=== PATIENT | male | born 1970 | race Caucasian/White ===

== ENCOUNTER 2020-03-29 09:17 | Outpatient (REF) | payer OTHER, SELFPAY ==
--- NOTE | 2020-03-29 09:24 | XR_ITS ---
EXAMINATION: XR CHEST CLINICAL INFORMATION: Chest pain COMPARISON: Chest 07/21/2018 TECHNIQUE: 2 views of the chest were obtained. FINDINGS: Hypoexpanded lungs with elevated right hemidiaphragm. The lungs are clear without acute process. Heart size and pulmonary vascularity is normal. No gross bony abnormality. XR/XR chest 2V IMPRESSION: No acute process seen. No change from 07/21/2018
== END 2020-03-29 09:18 | disposition home or self-care (01) ==
LOC: HO.HMGCX 09:17
PROVIDERS: PCP Internal Medicine; Visit Provider Nurse Practitioner Family
DX: R07.89 Other chest pain (principal)
CPT/HCPCS: 71046

== ENCOUNTER 2020-03-29 09:50 | Emergency (ER) | payer OTHER, SELFPAY ==
[2020-03-29 09:56] VITALS: PULSE 109; RESP 24; TEMP 37.6; O2SAT 97; BMI 29.1
--- NOTE | 2020-03-29 09:56 | ED_ITS ---
HPI - General Adult General Chief complaint: Chest Pain Stated complaint: chest and back pain Time Seen by Provider: 03/29/20 09:56 Source: patient Mode of arrival: ambulatory Limitations: no limitations History of Present Illness HPI narrative: chest pain right sided and thoracic worse with deep inspiration. Seen at the walk in and sent to the ED Onset (ago): hour(s) Location: chest and back Severity: moderate Quality: stabbing Pain Consistency: intermittent Exacerbating factors: other (deep inspiration) Related Data Previous Rx's Medication Instructions Recorded amlodipine 5 mg tablet 5 mg PO DAILY #90 tab 03/22/20 metoprolol succinate 25 mg 25 mg PO DAILY #90 tab 03/22/20 tablet,extended release 24 hr rosuvastatin 5 mg tablet 5 mg PO DAILY #90 tab 03/22/20 naproxen [Naprosyn] 500 mg PO BID #20 tab 03/29/20 Allergies Allergy/AdvReac Type Severity Reaction Status Date / Time Sulfa (Sulfonamide Allergy Unknown RASH Unverified 03/29/20 09:09 Antibiotics) [SULFA (SULFONAMIDE ANTIBIOTICS)] Review of Systems Constitutional: Constitutional: Reports no additional constitutional complaints Eyes: Eyes: Reports no additional eye complaints ENT: Denies dizziness Cardiovascular: Cardiovascular: Reports no additional cardiovascular complaints Respiratory: Respiratory: Reports as per HPI Gastrointestinal: Gastrointestinal: Reports no additional gastrointestinal complaints Musculoskeletal: Musculoskeletal: Reports no additional musculoskeletal complaints Integumentary/Breasts: Skin/Breast: Denies rash Neurologic: Reports system reviewed and no additional complaints, except as documented, Denies dizziness and Denies Sensory deficit (Neuro) Psychiatric: Psychiatric: Denies anxiety [facility] Past Medical History Medical History Hypercholesteremia Hypertension Social History Social History Alcohol intake: unknown Smoked in Last 30 Days: No Use of substances other than those prescribed or required for medical reasons: No Advance Directives: Yes Advance Directives Information Provided: No Advance Directives on File: No Physical Exam Vital Signs: Vital Signs: Last Vital Signs Temp 99.0 F 03/29/20 11:16 Pulse 82 03/29/20 12:13 Resp 20 03/29/20 12:13 BP 121/80 12/02/20 12:13 Pulse Ox 99 03/29/20 12:13 Body Mass Index 29.1 Const: General: healthy appearing Nutritional Appearance: average body habitus Orientation/consciousness: oriented to person and patient oriented x3 Limitations: no limitations HENMT: Head: Yes normal to inspection Ears: external ears normal General nose exam: Normal external nose present Mouth: Normal oral and palatal mucosa present and oropharynx normal Throat: Yes posterior oropharynx normal Eyes: General: appearance normal, both eyes and all related structures Neck: Other: supple Neck: Yes normal visual inspection Chest: Other: no reproducible chest pain Chest palpation & inspection: normal inspection of the chest Resp: Auscultation: clear to auscultation bilaterally Cardio: Jugular venous distension: no JVD Rate: regular rate Rhythm: regular rhythm Heart sounds: S1 normal heart sound present and S2 normal heart sound present GI: Inspection: Yes normal to inspection Palpation (GI): Soft to palpation, nontender and No hepatosplenomegaly present Auscultation: normal bowel sounds : General: Yes no CVA tenderness Back/Spine/Pelvis: Back: no CVA tenderness Skin: General skin exam: no rashes or lesions noted Neuro: General: oriented to person and patient oriented x3 Cranial nerves: Yes CN's II-XII intact bilaterally Motor exam (neuro): 5/5 motor strength present throughout Sensory Exam: No Sensory deficit (Neuro) Extrem: General: Yes normal to inspection Psych: Appearance: grossly normal Course Course Course Narrative: Ino Orlando in to see patient would like COVID test Medical Decision Making [facility] Narrative Medical decision making narrative: right pleuritic chest pain, troponin negati ve, ddimer negative, xray negative, will treat for pleuritic chest pain with NSAIDS Differential Diagnosis Differential Diagnosis: PE, pneumonia, RI, shingles, pleuritic chest pain, COVID Lab Data Result diagrams: 03/29/20 10:23 03/29/20 10:23 Labs: Lab Results 03/29/20 03/29/20 03/29/20 Range/Units 10:23 10:23 10:23 WBC 12.5 H (4.8-10.8) X10*3/uL RBC 4.66 (4.60-5.80) X10*6/uL Hgb 14.8 (14.0-18.0) g/dl Hct 42.4 (42-52) % MCV 91.0 (80-98) fL MCH 31.8 (27.0-33.0) pg MCHC 34.9 (31.0-36.0) g/dl RDW 12.8 (11.0-16.0) % Plt Count 268 (160-400) X10*3/uL MPV 9.7 (9.4-12.4) fL Immature Gran % (Auto) 0.3 (0.0-0.4) % Neut % (Auto) 80.8 H (45-73) % Lymph % (Auto) 10.8 L (20-40) % Fisher % (Auto) 7.9 (2-11) % Eos % (Auto) 0.0 (0-4) % Baso % (Auto) 0.2 (0-2) % Lymph # (Auto) 1.4 (1.2-4.9) X10*3/uL Fisher # (Auto) 1.0 (0.1-1.2) X10*3/uL Eos # (Auto) 0.0 (0.0-0.4) X10*3/uL Baso # (Auto) 0.0 (0.0-0.2) X10*3/uL Abs Immat Gran (auto) 0.04 H (0.00-0.03) X10*3/uL Absolute Neuts (auto) 10.1 H (2.0-8.3) X10*3/uL Absolute Nucleated RBC 0.000 (0.0-0.012) X10*3/uL Nucleated RBC % (auto) 0.0 (0.0-0.2) /100WBC D-Dimer NG/ML Sodium 140 (135-145) mmol/L Potassium 4.6 (3.3-5.1) mmol/l Chloride 104 (96-108) mmol/L Carbon Dioxide 27 (22-29) mmol/L Anion Gap 14 (12-20) BUN 14 (9-16) mg/dL Creatinine 1.02 (0.5-1.4) mg/dL Estim Creat Clear Calc 87.0 Estimated GFR > 60 Random Glucose 128 H (60-115) mg/dL Calcium 8.6 (8.4-10.2) mg/dL Troponin I High Sens < 3.5 (<3.5-35.0) ng/L COVID-19 ([facility]) (Negative) COVID-19 Clin Com 03/29/20 03/29/20 Range/Units 10:23 13:12 WBC (4.8-10.8) X10*3/uL RBC (4.60-5.80) X10*6/uL Hgb (14.0-18.0) g/dl Hct (42-52) % MCV (80-98) fL MCH (27.0-33.0) pg MCHC (31.0-36.0) g/dl RDW (11.0-16.0) % Plt Count (160-400) X10*3/uL MPV (9.4-12.4) fL Immature Gran % (Auto) (0.0-0.4) % Neut % (Auto) (45-73) % Lymph % (Auto) (20-40) % Fisher % (Auto) (2-11) % Eos % (Auto) (0-4) % Baso % (Auto) (0-2) % Lymph # (Auto) (1.2-4.9) X10*3/uL Fisher # (Auto) (0.1-1.2) X10*3/uL Eos # (Auto) (0.0-0.4) X10*3/uL Baso # (Auto) (0.0-0.2) X10*3/uL Abs Immat Gran (auto) (0.00-0.03) X10*3/uL Absolute Neuts (auto) (2.0-8.3) X10*3/uL Absolute Nucleated RBC (0.0-0.012) X10*3/uL Nucleated RBC % (auto) (0.0-0.2) /100WBC D-Dimer < 200 NG/ML Sodium (135-145) mmol/L Potassium (3.3-5.1) mmol/l Chloride (96-108) mmol/L Carbon Dioxide (22-29) mmol/L Anion Gap (12-20) BUN (9-16) mg/dL Creatinine (0.5-1.4) mg/dL Estim Creat Clear Calc Estimated GFR Random Glucose (60-115) mg/dL Calcium (8.4-10.2) mg/dL Troponin I High Sens (<3.5-35.0) ng/L COVID-19 ([facility]SEL) Negative (Negative) COVID-19 Clin Com See Note ECG Data Attestation: I personally reviewed and interpreted this ECG as follows: Interpretation: sinus tachycardia rate of 110, old inferior Q, no st or twave changes Discharge Plan Discharge Clinical Impression: Chest wall pain Patient Disposition: Home, Self-Care Instructions: Chest Pain (ED), Chest Wall Pain (ED) Prescriptions: New naproxen [Naprosyn] 500 mg tablet 500 mg PO BID Qty: 20 RF: 0 No Action rosuvastatin [Crestor] 5 mg tablet 5 mg PO DAILY Qty: 90 RF: 1 amlodipine 5 mg tablet 5 mg PO DAILY Qty: 90 RF: 1 metoprolol succinate [Toprol XL] 25 mg tablet extended release 24 hr 25 mg PO DAILY Qty: 90 RF: 1 Referrals: Ino Orlando MD [Primary Care Provider] - 2 days
--- NOTE | 2020-03-29 10:09 | ECG_ITS ---
Test Reason : CHEST PAIN Blood Pressure : / mmHG Vent. Rate : 110 BPM Atrial Rate : 110 BPM P-R Int : 146 ms QRS Dur : 090 ms QT Int : 312 ms P-R-T Axes : 040 000 025 degrees QTc Int : 422 ms Sinus tachycardia Possible Inferior infarct , age undetermined Abnormal ECG When compared with ECG of 07-JUN-2006 19:29, Possible Inferior infarct is now Present Referred By: Biju Cote Electronically Signed By:EVELYN SHERWOOD MD
[2020-03-29] MEDS: Ketorolac Tromethamine 30 MG/ML VIAL IVPUSH (10:24)
[2020-03-29 10:29] LABS: MANUAL DIFF FLAG NO
[2020-03-29 10:32] LABS: Basophils Percent Auto 0.2 % (0-2); Hematocrit 42.4 % (42-52); Hemoglobin 14.8 g/dl (14.0-18.0); Imm Gran Abs Auto 0.04 X10*3/uL (0.00-0.03); Imm Gran Pct Auto 0.3 % (0.0-0.4); Lymphocytes Absolute Auto 1.4 X10*3/uL (1.2-4.9); Lymphocytes Percent Auto 10.8 % (20-40); Mean Corpuscular HGB Conc 34.9 g/dl (31.0-36.0); Mean Corpuscular Hemoglobin 31.8 pg (27.0-33.0); Mean Platelet Volume 9.7 fL (9.4-12.4); Monocytes Percent Auto 7.9 % (2-11); Neutrophils Absolute Auto 10.1 X10*3/uL (2.0-8.3); Neutrophils Percent Auto 80.8 % (45-73); Platelet Count 268 X10*3/uL (160-400); Red Blood Count 4.66 X10*6/uL (4.60-5.80); Red Cell Distribution Width 12.8 % (11.0-16.0); White Blood Count 12.5 X10*3/uL (4.8-10.8)
[2020-03-29 10:40] LABS: D Dimer < 200 NG/ML
[2020-03-29 10:51] LABS: Anion Gap 14 (12-20); Blood Urea Nitrogen 14 mg/dL (9-16); Calcium 8.6 mg/dL (8.4-10.2); Carbon Dioxide 27 mmol/L (22-29); Chloride 104 mmol/L (96-108); Estimated Glomerular Filt Rate > 60; Glucose Random 128 mg/dL (60-115); Potassium 4.6 mmol/l (3.3-5.1); Sodium 140 mmol/L (135-145)
[2020-03-29 10:58] LABS: Troponin-I High Sensitivity < 3.5 ng/L (<3.5-35.0)
[2020-03-29 11:16] VITALS: BP 125/85; PULSE 86; RESP 16; TEMP 37.2; O2SAT 94
--- NOTE | 2020-03-29 11:32 | XR_ITS ---
EXAMINATION: XR CHEST CLINICAL INFORMATION: Right-sided pleuritic chest pain. COMPARISON: Chest radiographs 03/29/2020 at 0926 hours, 07/21/2018, 05/03/2017 TECHNIQUE: 2 views of the chest were obtained. FINDINGS: There is no pneumothorax, subcutaneous emphysema, or focal pleural reaction. Again, there are low lung volumes with hypoventilatory changes adjacent to the diaphragms. There is likely trace disc atelectasis at both bases. There is no lobar or segmental airspace consolidation or definite groundglass opacity. No definite effusion. The heart is normal in size. The hilar and mediastinal contours and bony structures are unremarkable. XR/XR chest 2V IMPRESSION: 1. Low lung volumes with bibasilar hypoventilatory changes, likely trace bibasilar disc atelectasis. 2. No pneumothorax or pleural reaction.
--- NOTE | 2020-03-29 11:35 | PC.NURSE ---
Pt reports paim has subsided. He states he is able to take a deep breath much more comfortably now. Plan is to repeat a CXR.
[2020-03-29 12:13] VITALS: BP 121/80; PULSE 82; RESP 20; O2SAT 99
[2020-03-29 13:36] LABS: COVID-19 Test Negative (Negative); IDNOW Serial# 9DD0AD1C
== END 2020-03-29 14:13 | disposition home or self-care (01) ==
PROVIDERS: Emergency Provider Emergency Medicine; PCP Internal Medicine
DX: R07.9 Chest pain, unspecified (principal); Z79.899 Other long term (current) drug therapy
CPT/HCPCS: 36415; 71046; 80048; 84484; 85025; 85379; 87635; 93005; 96374; 99284; J1885

== ENCOUNTER 2020-03-30 15:50 | Outpatient (REF) | payer OTHER, SELFPAY ==
--- NOTE | 2020-03-30 16:00 | CT_ITS ---
EXAMINATION: CT CHEST WITHOUT CONTRAST CLINICAL INFORMATION: Right sided pleuritic chest pain. COMPARISON: None TECHNIQUE: Multidetector volumetric CT imaging of the chest was done. Axial MIP volume rendering provided. Sagittal and coronal reformatted images were obtained. This CT examination was performed using dose optimization techniques as appropriate, variously including the following: *Automated exposure control *Adjustment of mA and/or kV according to patient size (this includes techniques or standardized protocols for targeted exams where dose is matched to indication/reason for exam; i.e. 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 LUNGS: The lungs are hypoexpanded. However there is a right lower lobe airspace consolidation and posterior basal segment, CP angle. Also visualized is minimal airspace disease in the left CP angle posterior basal segment on sagittal view 40/7. In addition there is bilateral lower lobe stranding likely chronic atelectasis. Minimal atelectatic changes also seen in the right middle lobe medially. MEDIASTINUM: The thyroid lobes are symmetrical and normal. The central trachea and the bronchi widely patent. Heart size and the great vessels are normal caliber. No abnormal size mediastinal lymph nodes or mass seen. There is no pericardial effusion. PLEURA: There is small reactive right pleural effusion. AXILLA: No abnormal sized axillary lymph nodes seen. The chest wall appears unremarkable. UPPER ABDOMEN: Visualized liver, gallbladder, spleen, pancreas and bilateral adrenal glands are unremarkable. OSSEOUS STRUCTURES: No lytic or sclerotic process seen. There is minimal spondylosis T8-T9 disc level. CT/CT chest wo con IMPRESSION: Bilateral posterior basal segment infiltrates slightly more prominent on the right than left. There is bibasilar platelike atelectasis as well. Minimal small right pleural effusion. Results were discussed with Dr. Tulio Sibley by phone at 4:05 PM.
== END 2020-03-30 15:51 | disposition home or self-care (01) ==
LOC: HO.CT 15:50
PROVIDERS: PCP Internal Medicine; Visit Provider Hospitalist
DX: R06.02 Shortness of breath (principal)
CPT/HCPCS: 71250

== ENCOUNTER → 2020-03-31 | Outpatient (REF) | payer OTHER, SELFPAY ==
--- NOTE | 2020-03-31 09:59 | CA_ITS ---
Transthoracic Echocardiogram Amended Patient (Last, First, Middle): Rivera Reid R Gender: Male Date of : 1970 Age: 49 Procedure Date: 03/31/2020 Procedure Type: Transthoracic Echocardiogram Location: OP Height: 167.64 cm Weight: 81.65 kg BSA: 1.91 m2 Heart Rate: bpm Ict Sales Representative: LESTER Referring MD: Tulio Sibley DO Telecom Manager: Gurwinder Bond MD Symptoms: R94.31 - Abnormal electrocardiogram [ECG] [EKG] Study Quality: Good ECG Rhythm: Sinus Conclusions: - 1. Normal LV systolic function with grade 1 diastolic dysfunction 2. Normal cardiac valvular Doppler 3. Normal RV systolic pressure 4. No pericardial effusion Findings Left Ventricle Normal left ventricular size, thickness, and systolic function. The visually estimated ejection fraction is between 60-65%. Spectral Doppler is indicative of an impaired relaxation filling pattern. E/E prime ratio is <8, consistent with normal filling pressures. Evidence suggests grade I (mild) diastolic dysfunction. Right Ventricle Normal right ventricular cavity size and systolic function. Atria Both atria are normal in size. There is a mobile atrial septum noted. Interatrial shunt cannot be excluded. Aortic Valve Normal aortic valve structure and function. There is no aortic valve stenosis. There is no aortic valve regurgitation. Mitral Valve Normal mitral valve structure and function. There is trace mitral valve regurgitation. There is no mitral valve stenosis. Pulmonic Valve The pulmonic valve is likely normal. Tricuspid Valve Normal tricuspid valve structure. There is trace tricuspid valve regurgitation. The right ventricular systolic pressure is normal. The right ventricular systolic pressure is 23 mmHg. Normal right atrial pressure. There is no evidence of pulmonary hypertension. Great Vessels All visible segments of the aorta are normal in size. The pulmonary artery was not well visualized. Venous The inferior vena cava is normal in size and collapses greater than 50% with inspiration. Pericardium/Pleural There is no evidence of pericardial effusion. Prior Study Comparison no previous study in the last 5 years for comparison Recommendations, Care & Conclusions Recommend contrast study to evaluate intracardiac shunting. Measurements 2D Linear Measurements IVSd: 1.13 0.6-0.9/0.6-1.0 cm LVIDd: 4.23 3.9-5.3/4.2-5.9 cm LVIDd Index: 2.21 2.4-3.2/2.2-3.1 cm/m2 LVIDs: 2.35 2.0-3.6 cm LVPWd: 1.09 0.7-1.1 cm Ao Root: 3.20 2.1-3.5 cm LA Diam: 3.80 2.7-3.8/3.0-4.0 cm LAIDs Index: 1.99 1.5-2.3 cm/m2 LV Mass: 200.36 67-162/88-224 g LV Mass Index: 104.90 43-95/49-115 g/m2 LVOT Diam: 2.20 3.0+(-)1.3 cm 2D Volumes LA Vol: 24.60 Mitral Valve MV Pk E: 0.75 MV PK A: 1.01 MV Decel Time: 150.00 E/A: 0.70 E'Lateral: 10.70 E'Medial: 10.10 E/E' Med: 7.50 E/E' Lat: 7.00 PHT: 44.00 MVA PHT: 5.00 Decel Dolores: 5.04 Aortic Valve AoV Pk Frantz: 1.41 AoV Mn Frantz: 0.97 AoV VTI: 0.25 AoV Pk Grad: 8.00 Aov Mn Grad: 4.00 NICOLA Cont.VTI: 3.66 LVOT LVOT Pk Frantz: 0.93 LVOT Mn Frantz: 0.54 LVOT VTI: 0.24 LVOT Pk Grad: 3.00 LVOT Mn Grad: 1.00 LVOT Diam: 2.20 LVOT Area: 3.80 Diastolic Function MV Pk E: 0.75 MV Pk A: 1.01 E/A: 0.70 E'Medial: 10.10 E/E' Med: 7.50 E' Laterial: 10.70 E/E' Lat: 7.00 Tricuspid Valve TR Pk Frantz: 2.23 TR Pk Grad: 20.00 RA Press: 3.00 RVSP: 23.00 Great Vessels Aorta Ao Root-2D: 3.20 2.0-3.7 cm Ao Asc: 3.00 2.1-3.4 cm Pulmonary Valve PV Pk Frantz: 1.76 Peak PV Grad: 12.00 Updated in Other Vendor System with Status of Final Gurwinder Bond MD electronically signed on 03/31/2020 2:47:57 PM with status of Final
== END ==
LOC: HO.CARD
PROVIDERS: PCP Internal Medicine; Visit Provider Hospitalist
DX: R94.31 Abnormal electrocardiogram [ECG] [EKG] (principal)
CPT/HCPCS: 93306

== ENCOUNTER 2020-04-04 07:20 | Outpatient (REF) | payer OTHER, SELFPAY ==
[2020-04-04 07:43] LABS: COVID-19 Test Negative (Negative); IDNOW Serial# 55D5AD1C
== END 2020-04-04 07:21 | disposition home or self-care (01) ==
LOC: HO.LAB 07:20
PROVIDERS: Visit Provider Internal Medicine
DX: Z20.828 Contact with and (suspected) exposure to other viral communicable diseases (principal)
CPT/HCPCS: 87635; C9803

== ENCOUNTER 2020-04-24 08:12 | Outpatient (REF) | payer OTHER, SELFPAY ==
[2020-04-24 08:25] LABS: COVID-19 Test Positive (Negative); IDNOW Serial# 55D5AD1C
== END 2020-04-24 08:13 | disposition home or self-care (01) ==
LOC: HO.EMPCOV 08:12
PROVIDERS: PCP Internal Medicine; Visit Provider Internal Medicine
DX: Z20.828 Contact with and (suspected) exposure to other viral communicable diseases (principal)
CPT/HCPCS: 87635; C9803

== ENCOUNTER 2020-04-25 09:29 | Inpatient (IN) | payer OTHER, SELFPAY ==
--- NOTE | 2020-04-25 | CT_ITS ---
EXAMINATION: CT ANGIOGRAM OF THE CHEST WITH AND WITHOUT CONTRAST (CT PULMONARY ANGIOGRAM FOR PE) CLINICAL INFORMATION: Reason for Exam chest pain COMPARISON: CT chest 03/30/2020. Chest x-ray 04/25/2020 TECHNIQUE: Prior to contrast administration, noncontrast localization images were obtained. Subsequently, multidetector volumetric imaging was performed from the thoracic inlet to below the diaphragms following the administration of 80 mL Omnipaque 350 intravenous contrast. No contrast reaction reported Sagittal, coronal, and MIP oblique sagittal reformatted images were obtained on the CT workstation, uploaded to PACS, and reviewed. This CT examination was performed using dose optimization techniques as appropriate, variously including the following: *Automated exposure control *Adjustment of mA and/or kV according to patient size (this includes techniques or standardized protocols for targeted exams where dose is matched to indication/reason for exam; i.e. extremities or head) *Use of iterative reconstruction technique Total exam dose-length product 416 mGy-cm FINDINGS: QUALITY OF STUDY/CONTRAST BOLUS: Satisfactory. PULMONARY ARTERIES: No central or segmental pulmonary emboli. THORACIC AORTA: No aneurysm or dissection. LUNG: No focal consolidation, nodules or masses. PLEURA: No pleural effusion or pneumothorax. MEDIASTINUM: Normal heart size. No pericardial effusion. No hilar or mediastinal lymphadenopathy. No evidence of septal bowing or right heart strain. CHEST WALL/AXILLA: No axillary or internal mammary lymphadenopathy. OSSEOUS STRUCTURES: No acute or suspicious osseous abnormality. UPPER ABDOMEN: Unremarkable. No reflux of contrast into the hepatic veins to suggest elevated right heart pressures. CT/CT angio chest PE protocol IMPRESSION: No acute abnormality of chest. No evidence of pulmonary embolism. VTE: negative
--- NOTE | 2020-04-25 09:17 | XR_ITS ---
EXAMINATION: XR CHEST CLINICAL INFORMATION: Covid 19 COMPARISON: Previous chest x-ray most recent 03/29/2020 TECHNIQUE: Frontal view of the chest was obtained. FINDINGS: The cardiac and mediastinal contours are normal. The lung volumes are low. The lungs are clear. There is no pleural effusion or pneumothorax. Bony structures are unremarkable. XR/XR chest 1V IMPRESSION: Low lung volumes. No evidence of pneumonia.
[2020-04-25 10:00] VITALS: BP 127/85; PULSE 111; RESP 18; TEMP 36.7; O2SAT 98
[2020-04-25 10:09] VITALS: BMI 29.0
--- NOTE | 2020-04-25 10:10 | ECG_ITS ---
Test Reason : TACHICARDIA Blood Pressure : / mmHG Vent. Rate : 085 BPM Atrial Rate : 085 BPM P-R Int : 154 ms QRS Dur : 096 ms QT Int : 374 ms P-R-T Axes : 024 -06 -04 degrees QTc Int : 445 ms Poor data quality, interpretation may be adversely affected Normal sinus rhythm Cannot exclude old Inferior infarct (cited on or before 29-MAR-2020) Abnormal ECG When compared with ECG of 29-MAR-2020 09:57, No significant change was found Referred By: Sher Parada Electronically Signed By:GINNY CORCORAN
[2020-04-25 10:13] LABS: Hematocrit 44.2 % (42-52); Mean Corpuscular HGB Conc 33.9 g/dl (31.0-36.0); Mean Corpuscular Hemoglobin 30.8 pg (27.0-33.0); Mean Corpuscular Volume 90.8 fL (80-98); Mean Platelet Volume 9.6 fL (9.4-12.4); Platelet Count 256 X10*3/uL (160-400); Red Blood Count 4.87 X10*6/uL (4.60-5.80); White Blood Count 5.9 X10*3/uL (4.8-10.8)
[2020-04-25] MEDS: Enoxaparin Sodium 40 MG/0.4 ML SYRINGE SUBCUT (10:19)
[2020-04-25 10:35] LABS: Anion Gap 16 (12-20); Blood Urea Nitrogen 13 mg/dL (9-16); Calcium 8.8 mg/dL (8.4-10.2); Carbon Dioxide 22 mmol/L (22-29); Chloride 106 mmol/L (96-108); Creatinine Clr Calc Pharmacy 73.2; Estimated Glomerular Filt Rate > 60; Glucose Random 147 mg/dL (60-115); Sodium 140 mmol/L (135-145)
[2020-04-25 10:38] LABS: C Reactive Protein 0.78 mg/dL (< or = 0.50); Lactate Dehydrogenase 202 U/L (118-273)
[2020-04-25 10:40] LABS: D Dimer < 200 NG/ML
[2020-04-25] MEDS: dexAMETHasone sod phosphate 4 MG/ML VIAL 6 MG IVPUSH (11:08)
[2020-04-25 11:26] LABS: Alanine Aminotransferase 36 U/L (0-40); Albumin Level 4.4 g/dL (3.5-5.0); Alkaline Phosphatase 91 U/L (39-117); Aspartate Amino Transferase 28 U/L (5-37); Bilirubin Direct < 0.2 mg/dL (0.0-0.5); Bilirubin Total 0.4 mg/dL (0.0-1.0); Total Protein 7.2 g/dL (6.5-8.0)
--- NOTE | 2020-04-25 12:25 | PM.IMHP ---
History of Present Illness Date of Service: 04/25/20 Chief Complaint: Covid with respiratory difficulty 49 year male with HTN, HLD who was treated with CAP at the begining of the moth and had full recovery and presented after tested positive for covid on 04/24/20. He developed cough the day prior, and has been experiencing heavy in the chest with breathing, cough is mostly non-productive, he has had fever of up to 101. He is admitted to the hospital in recent with pneumonia that may have compromise lungs and now with covid and some difficulty breathing despite oxygen saturation being ok for the time being. Review of Systems Review of Systems: Gen: + fever Resp: n+ sob, + cough CV: some heavyness in the chest GI: No n/v, no abd pain Neuro: No confusion Yes all other systems are reviewed and are negative [facility] Medical History HLD (hyperlipidemia) Hypercholesteremia Hypertension Cognitive capacity: Intact Functional capacity: independent ambulation Family History Other Coronary artery disease (CAD) excluded HLD (hyperlipidemia) HTN (hypertension) Pertinent family history: CAD, HLD, HTN--Father Social History Household Members: Spouse and Children Housing: House Do you presently have visiting nurse or other home services: No Alcohol intake: unknown Smoking Status: Never smoker Second Hand Smoke Exposure: No Use of substances other than those prescribed or required for medical reasons: No Currently Displaying Signs/Symptoms of Drug Intoxication Withdrawal: No Any prior treatment program specific to substance use: No Have you been hit, kicked, punched, or otherwise hurt by someone within the past year? If so, by whom?: No Do you feel safe in your current relationship?: No Is there a partner from a previous relationship who is making you feel unsafe now?: No Are you made to feel afraid or neglected: No Advance Directives: No Advance Directives Information Provided: Yes Do you have thoughts of harming others: None Do you have a plan to hurt others: No Plan Recently lost weight without trying: No Meds Allergies Allergy/AdvReac Type Severity Reaction Status Date / Time fish derived [fish] Allergy Hives Verified 04/25/20 17:24 Physical Exam Vital Signs and Narrative: Vital Signs: Last Vital Signs Temp 98.1 F 04/25/20 10:00 Pulse 111 H 04/25/20 10:00 Resp 18 04/25/20 10:00 BP 127/85 04/25/20 10:00 Pulse Ox 98 04/25/20 10:00 Body Mass Index 29.0 General: AO X 3, no acute distress Resp: CTA bilatera. except dec breath sound at bases CVS: S1,S2,RRR on monitor GI: no complaint Skin: No rash Neuro: motor grossly intact Psych: appropriate affect Results Labs CBC and Chem 7: 04/25/20 09:48 04/25/20 09:48 Imaging Radiologist's Impressions: Impressions Chest X-Ray 04/25/20 09:17 IMPRESSION: Low lung volumes. No evidence of pneumonia. Assessment and Plan (1) COVID-19: Problem details: Symptomatic moderate COVID with symptoms of chest pain and tachypnea and fever. Positive PCR with a recent exposure. Right now he is on room air hemodynamically stable. He was vaccinated 7 days ago. Most likely he was incubating COVID when received vaccine Also vaccine is only 52 % effective after first dose and received only a week ago and had exposure He has had pneumonia in past he mentions as well 3 weeks ago and concern over any asthma or predisposing factors to pneumonia Status: Acute (2) HTN (hypertension): Status: Acute (3) HLD (hyperlipidemia): Status: Acute (4) Shortness of breath: Status: Acute 49 year male wth HTN, HLD, recent treatment for PNA and now with covid-19 with some respiratory difficulty, fever. 1. Covid-19, respirtaoty difficulty -Corticosteroid -Pulmonary/ID consult -May benefit from Remdesevir -CXR -Routine labs -Cough medication as needed 2. HTN--controlled. Continue Home meds (Metoprolol and Norvasc)--already taken today 3. HLD--continue Crestor 4. Lovenox for DVT prophylaxis
[2020-04-25] MEDS: Remdesivir 200 MG in 0.9 % Sodium Chloride 210 ML 105 MG IV (12:29)
[2020-04-25 12:53] VITALS: BP 146/80; PULSE 89; RESP 18; TEMP 37.2; O2SAT 96
--- NOTE | 2020-04-25 13:04 | P.CONPL_ITS ---
History of Present Illness History of Present Illness Consult date: 04/25/20 Chief complaint: covid respiratory issues Narrative: The patient is a 49-year-old gentleman with a recent history of pneumonia several weeks ago now presenting with worsening shortness of breath and chest pressure. Apparently the patient was in his usual state health until the beginning of March when he started developing pleuritic right-sided chest pain. He was evaluated and had a CT scan of the chest demonstrating bibasilar consolidations. He was placed on antibiotics and he recovered completely. Now more recently over the weekend he was exposed to COVID-19 infection. He started developing fevers and shortness of breath in addition to chest pains. Therefore last night he was concerned with the symptoms and was brought into the hospital. He could use found to be abnormal and a chest x-ray demonstrating significant limitations in his respiratory capacity. No significant opacities appreciated. Review of Systems Constitutional: Constitutional: Reports body ache(s), Reports chills and Reports fever(s) ENT: Denies change in voice, Denies lip swelling, Denies mouth pain, Reports nasal congestion, Reports nasal discharge and Denies tongue swelling Cardiovascular: Cardiovascular: Reports chest pain and Reports dyspnea Respiratory: Respiratory: Reports chest congestion, Reports cough and Reports dyspnea Gastrointestinal: Gastrointestinal: Denies abdominal pain Musculoskeletal: Musculoskeletal: Denies no additional musculoskeletal complaints Neurologic: Denies Neuro-related abnormal movements Psychiatric: Psychiatric: Denies no additional psychiatric complaints Hematologic/Lymphatic: Hematologic/Lymphatic: Denies easy bleeding and Denies lymphadenopathy Allergic/Immunologic: Allergic/Immunologic: Denies lip swelling and Denies tongue swelling [facility] Past Medical History Medical History (Updated 04/25/20 @ 13:08 by Galo Dickerson MD) HLD (hyperlipidemia) Hypercholesteremia Hypertension Functional capacity: independent ambulation Family History Family History Other Coronary artery disease (CAD) excluded HLD (hyperlipidemia) HTN (hypertension) Social History Social History Household Members: Spouse and Children Housing: House Do you presently have visiting nurse or other home services: No Alcohol intake: unknown Smoking Status: Never smoker Second Hand Smoke Exposure: No Use of substances other than those prescribed or required for medical reasons: No Currently Displaying Signs/Symptoms of Drug Intoxication Withdrawal: No Any prior treatment program specific to substance use: No Have you been hit, kicked, punched, or otherwise hurt by someone within the past year? If so, by whom?: No Do you feel safe in your current relationship?: No Is there a partner from a previous relationship who is making you feel unsafe now?: No Are you made to feel afraid or neglected: No Advance Directives: No Advance Directives Information Provided: Yes Do you have thoughts of harming others: None Do you have a plan to hurt others: No Plan Recently lost weight without trying: No Meds Allergies Allergy/AdvReac Type Severity Reaction Status Date / Time Sulfa (Sulfonamide Allergy Unknown RASH Unverified 03/29/20 09:09 Antibiotics) [SULFA (SULFONAMIDE ANTIBIOTICS)] Physical Exam Vital Signs: Vital Signs: Last Vital Signs Temp 98.9 F 04/25/20 12:53 Pulse 89 04/25/20 12:53 Resp 18 04/25/20 12:53 BP 146/80 H 04/25/20 12:53 Pulse Ox 96 04/25/20 12:53 Body Mass Index 29.0 Const: General: alert HENMT: General nose exam: Abnormal external nose present and Nasal discharge present Eyes: Pupils: Equal, round and reactive pupils present Neck: Neck: Yes normal visual inspection, Yes full ROM and Yes no lymphadenopathy Chest: Chest palpation & inspection: normal inspection of the chest Resp: Auscultation: diminished lung sounds Cardio: Rate: regular rate Rhythm: regular rhythm Heart sounds: S1 normal heart sound present and S2 normal heart sound present GI: Palpation (GI): Soft to palpation and nontender Auscultation: normal bowel sounds : General: Yes no CVA tenderness Back/Spine/Pelvis: Back: no CVA tenderness Skin: General skin exam: rashes and/or lesions noted Neuro: Cranial nerves: Yes Equal, round and reactive pupils present Results Laboratory Findings CBC and BMP: 04/25/20 09:48 04/25/20 09:48 ABG, PT/INR, D-dimer: PT/INR, D-dimer D-Dimer < 200 NG/ML 04/25/20 09:48 Abnormal lab findings: Abnormal Labs 04/25/20 04/25/20 09:48 09:48 Random Glucose 147 H C-Reactive Protein 0.78 H Assessment and Plan (1) COVID-19: Problem details: Positive PCR with a recent exposure. Right now he is on room air hemodynamically stable. He was vaccinated 7 days ago. Status: Acute Check for SARs Cov2 antibodies (2) Shortness of breath: Status: Acute (3) Chest wall pain: Problem details: High risk for thrombo-embolic disease with +covid Status: Acute CTA which will further assess for airspace disease and
[2020-04-25 14:11] LABS: SARS COV2 IgG Negative (Negative)
--- NOTE | 2020-04-25 15:38 | P.CNID_ITS ---
History of Present Illness Data of Consult Service Date: 04/25/20 Requesting physician: Sher Parada Primary Care Provider: Ino Orlando MD HPI Reason for consult: shortness of breath,COVID He presents to hospital ER after one day cough and fever to 101 as well as right sided chest pain 6/10 radiating to back He has no nausea,vomiting,diarrhea or rash mentioned His daughter who is shadowing a physician practice has COVID and is symptomatic. Review of Systems Cardiovascular: Cardiovascular: Reports as per HPI and Reports chest pain at rest Respiratory: Respiratory: Reports cough Neurologic: Denies Neuro-related abnormal movements [facility] Past Medical History Medical History HLD (hyperlipidemia) Hypercholesteremia Hypertension Functional capacity: independent ambulation Family History Family History Other Coronary artery disease (CAD) excluded HLD (hyperlipidemia) HTN (hypertension) Social History Social History Household Members: Spouse and Children Housing: House Do you presently have visiting nurse or other home services: No Alcohol intake: unknown Smoking Status: Never smoker Second Hand Smoke Exposure: No Use of substances other than those prescribed or required for medical reasons: No Currently Displaying Signs/Symptoms of Drug Intoxication Withdrawal: No Any prior treatment program specific to substance use: No Have you been hit, kicked, punched, or otherwise hurt by someone within the past year? If so, by whom?: No Do you feel safe in your current relationship?: No Is there a partner from a previous relationship who is making you feel unsafe now?: No Are you made to feel afraid or neglected: No Advance Directives: No Advance Directives Information Provided: Yes Do you have thoughts of harming others: None Do you have a plan to hurt others: No Plan Recently lost weight without trying: No Meds Allergies Allergy/AdvReac Type Severity Reaction Status Date / Time Sulfa (Sulfonamide Allergy Unknown RASH Unverified 03/29/20 09:09 Antibiotics) [SULFA (SULFONAMIDE ANTIBIOTICS)] Physical Exam Vital Signs: Vital Signs: Last Vital Signs Temp 98.9 F 04/25/20 12:53 Pulse 89 04/25/20 12:53 Resp 18 04/25/20 12:53 BP 146/80 H 04/25/20 12:53 Pulse Ox 96 04/25/20 12:53 Body Mass Index 29.0 Const: General: comfortable HENMT: Head: Yes normocephalic and Yes atraumatic Resp: Effort & Inspection: normal respiratory effort Cardio: Rate: regular rate Rhythm: regular rhythm Extrem: General: Yes no clubbing, cyanosis or edema Assessment and Plan (1) COVID-19: Problem details: Symptomatic moderate COVID with symptoms of chest pain and tachypnea and fever. Positive PCR with a recent exposure. Right now he is on room air hemodynamically stable. He was vaccinated 7 days ago. Most likely he was incubating COVID when received vaccine Also vaccine is only 52 % effective after first dose and received only a week ago and had exposure He has had pneumonia in past he mentions as well 3 weeks ago and concern over any asthma or predisposing factors to pneumonia Status: Acute Due to tachypnea and fever and possibility for clinical deterioration in setting of recent infection would give 1)Remdesivir 200 mg IV today and then 100 mg IV daily for 4 days,can stop if remains off oxygen 2)Dexamethasone 6 mg IV or po daily,can also stop if remains off oxygen 3)Would not recommend monoclonal antibody or convalescent plasma as not likely to be helpful and may be harmful with possible allergic reactions 4)Would give second dose of COVID vaccine in 3 months,would wait to achieve optimal antibody effect Results Labs CBC & Chem 7: 04/25/20 09:48 04/25/20 09:48 Labs: Short CBC 04/25/20 Range/Units 09:48 WBC 5.9 (4.8-10.8) X10*3/uL Hgb 15.0 (14.0-18.0) g/dl Hct 44.2 (42-52) % Plt Count 256 (160-400) X10*3/uL BMP 04/25/20 09:48 Sodium 140 Potassium 4.0 Chloride 106 Carbon Dioxide 22 BUN 13 Creatinine 1.21 Calcium 8.8 Liver Function 04/25/20 Range/Units 10:35 Total Bilirubin 0.4 (0.0-1.0) mg/dL Direct Bilirubin < 0.2 (0.0-0.5) mg/dL AST 28 (5-37) U/L ALT 36 (0-40) U/L Alkaline Phosphatase 91 (39-117) U/L Albumin 4.4 (3.5-5.0) g/dL
[2020-04-25] MEDS: 0.9 % Sodium Chloride Flush 3 ML SYRINGE IVFLUSH ×2 (16:53→21:03)
[2020-04-25] MEDS: iohexoL 350 MG/ML 100 ML INFUS..BTL IV (17:43)
[2020-04-25 19:50] VITALS: BP 120/72; PULSE 94; RESP 18; TEMP 37.7; O2SAT 96
[2020-04-25] MEDS: Zolpidem Tartrate 5 MG TABLET PO (21:13)
[2020-04-26] VITALS (9 sets, daily range): BP systolic 108–135; BP diastolic 65–89; PULSE 79–116; RESP 16–18; TEMP 36.5–37.1; O2SAT 93–96
[2020-04-26] MEDS: Enoxaparin Sodium 40 MG/0.4 ML SYRINGE SUBCUT (09:31)
[2020-04-26] MEDS: dexAMETHasone sod phosphate 4 MG/ML VIAL 6 MG IVPUSH (09:33)
[2020-04-26] MEDS: 0.9 % Sodium Chloride Flush 3 ML SYRINGE IVFLUSH ×3 (09:33→21:18)
[2020-04-26 10:19] LABS: Troponin-I High Sensitivity < 3.5 ng/L (<3.5-35.0)
--- NOTE | 2020-04-26 11:30 | PM.CNCAR ---
History of Present Illness History of Present Illness Date of Service: 04/26/20 Chief complaint: covid respiratory issues Narrative: This is a cardiology consultation regarding chest discomfort. Patient does not have any known cardiovascular issues including coronary disease or myocardial infarction or cardiomyopathy or in fact any other cardiac concerns whatsoever. At baseline, he does not have any anginal-type symptoms or shortness of breath or in fact any concerning symptoms at all. Current admission is for COVID infection and in this setting, he is having chest discomfort. This is very positional and can happen in certain positions but at other times he is feeling more comfortable. No exertional components whatsoever. No shortness of breath or other cardiac complaints like palpitations or dizzy spells or syncopal episodes. He does have hypertension, dyslipidemia at baseline. Review of Systems Review of Systems: Yes all other systems are reviewed and are negative Cardiovascular: Cardiovascular: Reports as per HPI, Reports no additional cardiovascular complaints, Reports chest pain, Reports chest pain at rest, Denies chest pain with activity, Denies rapid heart rate, Denies leg edema, Denies lightheadedness, Denies Loss of Consciousness, Denies radiating jaw, neck or arm pain, Denies palpitations, Denies dyspnea, Denies dyspnea on exertion and Denies orthopnea Respiratory: Respiratory: Denies dyspnea and Denies dyspnea on exertion Neurologic: Denies Neuro-related abnormal movements Endocrine: Endocrine: Denies palpitations PMFSH Past Medical History Medical History HLD (hyperlipidemia) Hypercholesteremia Hypertension Functional capacity: independent ambulation Family History Family History Other Coronary artery disease (CAD) excluded HLD (hyperlipidemia) HTN (hypertension) Social History Social History Household Members: Spouse and Children Housing: House Do you presently have visiting nurse or other home services: No Alcohol intake: unknown Smoking Status: Never smoker Second Hand Smoke Exposure: No Use of substances other than those prescribed or required for medical reasons: No Currently Displaying Signs/Symptoms of Drug Intoxication Withdrawal: No Any prior treatment program specific to substance use: No Have you been hit, kicked, punched, or otherwise hurt by someone within the past year? If so, by whom?: No Do you feel safe in your current relationship?: No Is there a partner from a previous relationship who is making you feel unsafe now?: No Are you made to feel afraid or neglected: No Advance Directives: No Advance Directives Information Provided: Yes Do you have thoughts of harming others: None Do you have a plan to hurt others: No Plan Recently lost weight without trying: No Meds Allergies Allergy/AdvReac Type Severity Reaction Status Date / Time fish derived [fish] Allergy Hives Verified 04/25/20 17:24 Physical Exam Vital Signs: Vital Signs: Last Vital Signs Temp 98.2 F 04/26/20 08:00 Pulse 79 04/26/20 08:00 Resp 18 04/26/20 08:00 BP 121/72 04/26/20 08:00 Pulse Ox 94 04/26/20 08:00 Body Mass Index 29.0 Const: General: cooperative, comfortable and no acute distress Orientation/consciousness: patient oriented x3 HENMT: Other: Unremarkable Neck: Neck: Yes normal visual inspection Chest: Chest palpation & inspection: normal inspection of the chest Resp: Auscultation: clear to auscultation bilaterally, no crackles and no wheezes Cardio: Jugular venous distension: no JVD Palpation: normal PMI Heart sounds: S1 normal heart sound present, S2 normal heart sound present, no gallops, no murmurs and no rubs GI: Palpation (GI): Soft to palpation Back/Spine/Pelvis: Other: unremarkable Skin: General skin exam: no rashes or lesions noted Neuro: General: patient oriented x3 Extrem: General: Yes no clubbing, cyanosis or edema Psych: Mental Status: mental status grossly normal Results Labs and Meds Result diagrams: 04/25/20 09:48 04/25/20 09:48 Lab results: Laboratory Results - last 24 hr 04/25/20 04/26/20 12:51 09:31 Troponin I High Sens < 3.5 SARS-CoV-2 IgG Ab Negative Assessment and Plan (1) Precordial chest pain: Status: Acute (2) COVID-19: Status: Acute (3) HLD (hyperlipidemia): Status: Acute (4) HTN (hypertension): Status: Acute Chest discomfort in the setting of active COVID infection. High sensitivity troponin negative. EKG with sinus rhythm at 85/Min. Cannot exclude old inferior infarct but this has been present from 2006. Hence can just be a normal variant. He does have risk factors of hypertension, dyslipidemia but he does not have any anginal-type CP presentation or EKG findings or troponin elevation. Overall, likely all from the COVID itself. No specific cardiac workup is required at this time. When he is fully recovered, we can consider an outpatient coronary CT.
[2020-04-26] MEDS: Metoprolol Succinate ER 25 MG TAB.ER.24H PO (12:34)
[2020-04-26] MEDS: Remdesivir 100 MG in 0.9 % Sodium Chloride 230 ML 115 MG IV (12:37)
[2020-04-26] MEDS: amLODIPine Besylate 5 MG TABLET PO (12:37)
--- NOTE | 2020-04-26 12:59 | HO.PM.IMPN ---
Subjective Subjective Date of Service: 04/26/20 Interval History: Seen in f/u for covid, resp distress. Feel better, less cough, no fever. has some chest dyscomfort..Troponin is normal Review of Systems Gen: + fever Resp:- sob, + cough CV: some heavyness in the chest intermittently GI: No n/v, no abd pain Neuro: No confusion Physical Exam Vital Signs: Vital Signs: Last Vital Signs Temp 98.0 F 04/26/20 12:00 Pulse 83 04/26/20 12:37 Resp 18 04/26/20 12:00 BP 128/79 04/26/20 12:37 Pulse Ox 96 04/26/20 12:00 Body Mass Index 29.0 Objective Data Current Medications Generic Name Dose Route Start Last Admin Trade Name Freq PRN Reason Stop Dose Admin Amlodipine Besylate 5 mg 04/26/20 10:15 04/26/20 12:37 Amlodipine Besylate 5 Mg Tablet PO 5 mg DAILY LETICIA Administration Protocol Atorvastatin Calcium 20 mg 04/27/20 09:00 Atorvastatin Calcium 20 Mg Tablet PO DAILY LETICIA Cyclobenzaprine HCl 10 mg 04/26/20 10:05 Cyclobenzaprine Hcl 10 Mg Tablet PO BEDTIME PRN muscle spasm Dexamethasone Sodium Phosphate 6 mg 04/25/20 10:30 04/26/20 09:33 Dexamethasone Sod Phosphate 4 Mg/Ml Vial IVPUSH 6 mg DAILY LETICIA Administration Enoxaparin Sodium 40 mg 04/25/20 10:00 04/26/20 09:31 Enoxaparin Sodium 40 Mg/0.4 Ml Syringe SUBCUT 40 mg Q24H LETICIA Administration Guaifenesin 5 ml 04/25/20 12:40 Guaifenesin 100 Mg/5 Ml Liquid PO Q4H PRN Cough Remdesivir 100 mg/ Sodium 230 mls @ 115 mls/hr 04/26/20 12:00 04/26/20 12:37 Chloride IV 115 mls/hr Q24H LETICIA Administration Metoprolol Succinate 25 mg 04/26/20 10:15 04/26/20 12:34 Metoprolol Succinate Er 25 Mg Tab.Er.24h PO 25 mg DAILY LETICIA Administration Protocol Sodium Chloride 3 ml 04/25/20 16:00 04/26/20 09:33 0.9 % Sodium Chloride Flush 3 Ml Syringe IVFLUSH 3 ml QSHIFT LETICIA Administration Zolpidem Tartrate 5 mg 04/25/20 12:40 04/25/20 21:13 Zolpidem Tartrate 5 Mg Tablet PO 5 mg BEDTIME PRN Administration Insomnia Labs CBC & Chem 7: 04/25/20 09:48 04/25/20 09:48 Assessment and Plan (1) COVID-19: Status: Acute (2) HTN (hypertension): Status: Acute (3) HLD (hyperlipidemia): Status: Acute (4) Shortness of breath: Status: Acute Assessment and Plan: 49 year male wth HTN, HLD, recent treatment for PNA and now with covid-19 with some respiratory difficulty, fever. 1. Covid-19, respirtaoty difficulty--improving -Corticosteroid - Remdesevir --Pulmonary/ID consult -CXR reviewed and Ok, CT also reviewed and no acute finding -Cough medication as needed 2. HTN--controlled. Continue Home meds (Metoprolol and Norvasc) 3. HLD--continue Crestor 4. Lovenox for DVT prophylaxis
--- NOTE | 2020-04-26 14:27 | MHC.CM.PN ---
Male 49 DX COVID+. He lives with his family. He is independent with all functional mobility. DP TBD by the Patients recovery, and needs. Post hospital services will be arranged by Case Management. The MD anticipates DC possibly tomorrow, no services. Family will provide transportation.
[2020-04-26] MEDS: Zolpidem Tartrate 5 MG TABLET PO (21:18)
[2020-04-27 04:00] VITALS: BP 115/71; PULSE 75; RESP 18; TEMP 36.4; O2SAT 96
[2020-04-27 08:00] VITALS: BP 120/81; PULSE 78; RESP 18; TEMP 36.6; O2SAT 94
[2020-04-27] MEDS: dexAMETHasone sod phosphate 4 MG/ML VIAL 6 MG IVPUSH (09:02)
[2020-04-27] MEDS: Enoxaparin Sodium 40 MG/0.4 ML SYRINGE SUBCUT (09:02)
[2020-04-27] MEDS: Atorvastatin Calcium 20 MG TABLET PO (09:03)
[2020-04-27] MEDS: 0.9 % Sodium Chloride Flush 3 ML SYRINGE IVFLUSH ×3 (09:09→20:59)
[2020-04-27 09:10] VITALS: BP 120/81; BP 121/80; PULSE 84
[2020-04-27] MEDS: Metoprolol Succinate ER 25 MG TAB.ER.24H PO (09:10)
[2020-04-27] MEDS: amLODIPine Besylate 5 MG TABLET PO (09:10)
[2020-04-27] MEDS: Remdesivir 100 MG in 0.9 % Sodium Chloride 230 ML 115 MG IV (10:47)
--- NOTE | 2020-04-27 10:56 | XR_ITS ---
EXAMINATION: XR CHEST CLINICAL INFORMATION: Right-sided pleuritic back pain. COMPARISON: CT chest 04/25/2020. TECHNIQUE: Frontal view of the chest was obtained. FINDINGS: The lungs are significantly hypoventilated with streaky linear interstitial prominent markings but no consolidation or pleural effusion. Heart size and pulmonary vascularity is normal. No gross bony abnormality seen. XR/XR chest 1V IMPRESSION: Hypoventilated lungs with fine streaky interstitial prominence but no consolidation or pleural effusion seen.
--- NOTE | 2020-04-27 12:05 | HO.PM.IMPN ---
Subjective Subjective Date of Service: 04/27/20 Interval History: Seen in f/u for covid, resp distress. Feel better, less cough, no fever. has some chest dyscomfort..Troponin is normal Physical Exam Vital Signs: Vital Signs: Last Vital Signs Temp 97.8 F 04/27/20 08:00 Pulse 84 04/27/20 09:10 Resp 18 04/27/20 08:00 BP 121/80 04/27/20 09:10 Pulse Ox 94 04/27/20 08:00 Body Mass Index 29.0 Objective Data Current Medications Generic Name Dose Route Start Last Admin Trade Name Freq PRN Reason Stop Dose Admin Amlodipine Besylate 5 mg 04/26/20 10:15 04/27/20 09:10 Amlodipine Besylate 5 Mg Tablet PO 5 mg DAILY LETICIA Administration Protocol Atorvastatin Calcium 20 mg 04/27/20 09:00 04/27/20 09:03 Atorvastatin Calcium 20 Mg Tablet PO 20 mg DAILY LETICIA Administration Cyclobenzaprine HCl 10 mg 04/26/20 10:05 Cyclobenzaprine Hcl 10 Mg Tablet PO BEDTIME PRN muscle spasm Dexamethasone Sodium Phosphate 6 mg 04/25/20 10:30 04/27/20 09:02 Dexamethasone Sod Phosphate 4 Mg/Ml Vial IVPUSH 6 mg DAILY LETICIA Administration Doxycycline Hyclate 100 mg 04/27/20 11:00 Doxycycline Hyclate 100 Mg Tablet PO Q12H LETICIA Enoxaparin Sodium 40 mg 04/25/20 10:00 04/27/20 09:02 Enoxaparin Sodium 40 Mg/0.4 Ml Syringe SUBCUT 40 mg Q24H LETICIA Administration Guaifenesin 5 ml 04/25/20 12:40 Guaifenesin 100 Mg/5 Ml Liquid PO Q4H PRN Cough Remdesivir 100 mg/ Sodium 230 mls @ 115 mls/hr 04/26/20 12:00 04/27/20 10:47 Chloride IV 115 mls/hr Q24H LETICIA Administration Metoprolol Succinate 25 mg 04/26/20 10:15 04/27/20 09:10 Metoprolol Succinate Er 25 Mg Tab.Er.24h PO 25 mg DAILY LETICIA Administration Protocol Sodium Chloride 3 ml 04/25/20 16:00 04/27/20 09:09 0.9 % Sodium Chloride Flush 3 Ml Syringe IVFLUSH 3 ml QSHIFT LETICIA Administration Zolpidem Tartrate 5 mg 04/25/20 12:40 04/26/20 21:18 Zolpidem Tartrate 5 Mg Tablet PO 5 mg BEDTIME PRN Administration Insomnia Labs CBC & Chem 7: 04/25/20 09:48 04/25/20 09:48 Assessment and Plan (1) COVID-19: Status: Acute (2) HTN (hypertension): Status: Acute (3) HLD (hyperlipidemia): Status: Acute (4) Shortness of breath: Status: Acute Assessment and Plan: 49 year male wth HTN, HLD, recent treatment for PNA and now with covid-19 with some respiratory difficulty, fever. 1. Covid-19, respirtaoty difficulty--improving - continue Corticosteroid x 10 days - Remdesevir D3, check LFTS --Pulmonary/ID consult -CXR reviewed and Ok, CT also reviewed and no acute finding -Cough medication as needed -Pulmonology to recommend further management 2. HTN--controlled. Continue Home meds (Metoprolol and Norvasc) 3. HLD--continue Crestor 4. Lovenox for DVT prophylaxis
--- NOTE | 2020-04-27 13:10 | PM.PNPUL ---
Subjective Subjective Date of Service: 04/27/20 Interval history: The patient was seen and examined. He is complaining of right-sided soreness in the back. Hard to take a deep breath in. Objective Data Labs CBC & Chem 7: 04/25/20 09:48 04/25/20 09:48 Review of Systems Constitutional: Denies night sweats Denies change in voice, Denies lip swelling, Denies mouth pain, Reports nasal congestion, Reports nasal discharge and Denies tongue swelling Cardiovascular: Denies chest pain Respiratory: Reports cough and Reports pain on inspiration Gastrointestinal: Denies abdominal pain Musculoskeletal: Denies no additional musculoskeletal complaints Denies Neuro-related abnormal movements Psychiatric: Denies no additional psychiatric complaints Hematologic/Lymphatic: Denies easy bleeding and Denies lymphadenopathy Allergic/Immunologic: Denies lip swelling and Denies tongue swelling Physical Exam Vital Signs: Vital Signs: Last Vital Signs Temp 97.8 F 04/27/20 08:00 Pulse 84 04/27/20 09:10 Resp 18 04/27/20 08:00 BP 121/80 04/27/20 09:10 Pulse Ox 94 04/27/20 08:00 Body Mass Index 29.0 Const: General: alert HENMT: General nose exam: Abnormal external nose present and Nasal discharge present Eyes: Pupils: Equal, round and reactive pupils present Neck: Neck: Yes normal visual inspection, Yes full ROM and Yes no lymphadenopathy Chest: Chest palpation & inspection: normal inspection of the chest Resp: Auscultation: crackles on the right in the lower lung manuel and diminished lung sounds Cardio: Rate: regular rate Rhythm: regular rhythm Heart sounds: S1 normal heart sound present and S2 normal heart sound present GI: Palpation (GI): Soft to palpation and nontender Auscultation: normal bowel sounds : General: Yes no CVA tenderness Back/Spine/Pelvis: Back: no CVA tenderness Skin: General skin exam: rashes and/or lesions noted Neuro: Cranial nerves: Yes Equal, round and reactive pupils present Assessment and Plan Assessment and plan (1) Precordial chest pain: Status: Acute Assessment and Plan: Chest x-ray Start doxycycline with crackles at the right base to cover for postviral bacterial infections (2) COVID-19: Status: Acute Assessment and Plan: Complete 5 days of IV remdesivir Dexamethasone (3) Chest wall pain: Problem details: High risk for thrombo-embolic disease with +covid Status: Acute Time Spent With Patient Time: Total time spent is greater than 50% in coordination of care (as documented) at patient's floor/unit and/or counseling patient: Time with patient: 15 - 24 minutes
[2020-04-27 13:11] LABS: Alanine Aminotransferase 27 U/L (0-40); Albumin Level 3.9 g/dL (3.5-5.0); Alkaline Phosphatase 73 U/L (39-117); Aspartate Amino Transferase 17 U/L (5-37); Bilirubin Direct < 0.2 mg/dL (0.0-0.5); Bilirubin Total < 0.2 mg/dL (0.0-1.0); Total Protein 6.4 g/dL (6.5-8.0)
[2020-04-27 13:22] VITALS: BP 130/73; PULSE 75; RESP 20; TEMP 36.6; O2SAT 98
[2020-04-27 14:33] LABS: Anion Gap 13 (12-20); Blood Urea Nitrogen 22 mg/dL (9-16); Calcium 8.2 mg/dL (8.4-10.2); Carbon Dioxide 27 mmol/L (22-29); Chloride 104 mmol/L (96-108); Creatinine Clr Calc Pharmacy 83.6; Estimated Glomerular Filt Rate > 60; Glucose Random 134 mg/dL (60-115); Sodium 140 mmol/L (135-145)
[2020-04-27 15:50] VITALS: BP 121/61; PULSE 77; RESP 19; O2SAT 99
[2020-04-27 19:30] VITALS: BP 123/81; PULSE 79; RESP 19; TEMP 36.1; O2SAT 95
[2020-04-27] MEDS: Zolpidem Tartrate 5 MG TABLET PO (20:59)
[2020-04-28] VITALS (7 sets, daily range): BP systolic 112–140; BP diastolic 68–81; PULSE 63–85; RESP 16–20; TEMP 35.8–36.8; O2SAT 92–98; BMI 29.0
--- NOTE | 2020-04-28 09:10 | HO.PM.IMPN ---
Subjective Subjective Date of Service: 04/28/20 Interval History: Seen in f/u for covid, resp distress. Feel better, less cough, no fever. has some chest dyscomfort..Troponin is normal Review of Systems Gen: + fever Resp:- sob, + cough CV: some heavyness in the chest intermittently GI: No n/v, no abd pain Neuro: No confusion Physical Exam Vital Signs: Vital Signs: Last Vital Signs Temp 98.2 F 04/28/20 04:00 Pulse 73 04/28/20 04:00 Resp 18 04/28/20 04:00 BP 112/75 04/28/20 04:00 Pulse Ox 92 04/28/20 04:00 Body Mass Index 29.0 General: AO X 3, no acute distress Resp: normal resp effort CVS: regular o monit GI: no issues Skin: No rash Neuro: motor grossly intact Psych: appropriate affect Objective Data Current Medications Generic Name Dose Route Start Last Admin Trade Name Freq PRN Reason Stop Dose Admin Amlodipine Besylate 5 mg 04/26/20 10:15 04/27/20 09:10 Amlodipine Besylate 5 Mg Tablet PO 5 mg DAILY LETICIA Administration Protocol Atorvastatin Calcium 20 mg 04/27/20 09:00 04/27/20 09:03 Atorvastatin Calcium 20 Mg Tablet PO 20 mg DAILY LETICIA Administration Cyclobenzaprine HCl 10 mg 04/26/20 10:05 Cyclobenzaprine Hcl 10 Mg Tablet PO BEDTIME PRN muscle spasm Dexamethasone Sodium Phosphate 6 mg 04/25/20 10:30 04/27/20 09:02 Dexamethasone Sod Phosphate 4 Mg/Ml Vial IVPUSH 6 mg DAILY LETICIA Administration Doxycycline Hyclate 100 mg 04/27/20 11:00 04/27/20 20:59 Doxycycline Hyclate 100 Mg Tablet PO 100 mg Q12H LETICIA Administration Enoxaparin Sodium 40 mg 04/25/20 10:00 04/27/20 09:02 Enoxaparin Sodium 40 Mg/0.4 Ml Syringe SUBCUT 40 mg Q24H LETICIA Administration Guaifenesin 5 ml 04/25/20 12:40 Guaifenesin 100 Mg/5 Ml Liquid PO Q4H PRN Cough Remdesivir 100 mg/ Sodium 230 mls @ 115 mls/hr 04/28/20 09:00 Chloride IV 04/29/20 10:59 Q24H LETICIA Metoprolol Succinate 25 mg 04/26/20 10:15 04/27/20 09:10 Metoprolol Succinate Er 25 Mg Tab.Er.24h PO 25 mg DAILY LETICIA Administration Protocol Sodium Chloride 3 ml 04/25/20 16:00 04/27/20 20:59 0.9 % Sodium Chloride Flush 3 Ml Syringe IVFLUSH 3 ml QSHIFT LETICIA Administration Zolpidem Tartrate 5 mg 04/25/20 12:40 04/27/20 20:59 Zolpidem Tartrate 5 Mg Tablet PO 5 mg BEDTIME PRN Administration Insomnia Labs CBC & Chem 7: 04/25/20 09:48 04/27/20 12:09 Assessment and Plan (1) COVID-19: Status: Acute (2) HTN (hypertension): Status: Acute (3) HLD (hyperlipidemia): Status: Acute (4) Shortness of breath: Status: Acute Assessment and Plan: 49 year male wth HTN, HLD, recent treatment for PNA and now with covid-19 with some respiratory difficulty, fever. 1. Covid-19, respirtaoty difficulty--improving - continue Corticosteroid x 10 days - Remdesevir D4, check LFTS --Pulmonary/ID consult -CXR reviewed and Ok, CT also reviewed and no acute finding -Empiric Doxy right lower lobe -Cough medication as needed -Pulmonology to recommend further management 2. HTN--controlled. Continue Home meds (Metoprolol and Norvasc) 3. HLD--continue Crestor 4. Lovenox for DVT prophylaxis Dispo: Home tomorrow
[2020-04-28] MEDS: dexAMETHasone sod phosphate 4 MG/ML VIAL 6 MG IVPUSH (09:48)
[2020-04-28] MEDS: 0.9 % Sodium Chloride Flush 3 ML SYRINGE IVFLUSH ×3 (09:48→22:17)
[2020-04-28] MEDS: Remdesivir 100 MG in 0.9 % Sodium Chloride 230 ML 115 MG IV (09:48)
[2020-04-28] MEDS: Enoxaparin Sodium 40 MG/0.4 ML SYRINGE SUBCUT (09:48)
[2020-04-28] MEDS: Atorvastatin Calcium 20 MG TABLET PO (09:49)
[2020-04-28] MEDS: Metoprolol Succinate ER 25 MG TAB.ER.24H PO (09:49)
[2020-04-28] MEDS: amLODIPine Besylate 5 MG TABLET PO (09:49)
--- NOTE | 2020-04-28 17:52 | PC.NURSE ---
Patient independent in room. Remains on room air. Continues on remdesivir. Vitals stable. Plan to discharge home tomorrow.
[2020-04-28] MEDS: Zolpidem Tartrate 5 MG TABLET PO (22:17)
--- NOTE | 2020-04-28 23:01 | P.EN_ITS ---
Event Note Date of Service: 04/28/20 Event Note: Some newer data indicate that patients can finish COVID vaccine se khurram 14 days after symptomatic recovery from COVID that occurs after first vaccine in series rather than waiting three months as long as monoclonal antibody hasnt been given
[2020-04-29] VITALS: BP 114/65; PULSE 60; RESP 18; TEMP 36.9; O2SAT 95
[2020-04-29 04:00] VITALS: BP 111/58; PULSE 64; RESP 20; TEMP 36.8; O2SAT 97
[2020-04-29 07:44] VITALS: BP 116/74; PULSE 71; RESP 18; TEMP 36.8; O2SAT 94
[2020-04-29 07:59] VITALS: BP 116/74; PULSE 71
[2020-04-29] MEDS: amLODIPine Besylate 5 MG TABLET PO (07:59)
[2020-04-29] MEDS: Remdesivir 100 MG in 0.9 % Sodium Chloride 230 ML 115 MG IV (07:59)
[2020-04-29] MEDS: dexAMETHasone sod phosphate 4 MG/ML VIAL 6 MG IVPUSH (07:59)
[2020-04-29] MEDS: Atorvastatin Calcium 20 MG TABLET PO (07:59)
[2020-04-29] MEDS: Metoprolol Succinate ER 25 MG TAB.ER.24H PO (07:59)
[2020-04-29] MEDS: 0.9 % Sodium Chloride Flush 3 ML SYRINGE IVFLUSH (08:00)
[2020-04-29 08:34] LABS: Alanine Aminotransferase 35 U/L (0-40); Albumin Level 3.9 g/dL (3.5-5.0); Alkaline Phosphatase 72 U/L (39-117); Aspartate Amino Transferase 19 U/L (5-37); Bilirubin Direct 0.2 mg/dL (0.0-0.5); Bilirubin Total 0.3 mg/dL (0.0-1.0); Total Protein 6.3 g/dL (6.5-8.0)
--- NOTE | 2020-04-29 08:55 | MHC.CM.PN ---
Pt being discharged home today with no services
--- NOTE | 2020-04-29 09:36 | P.DS_ITS ---
DS: Providers Provider Date of admission: 04/25/20 09:29 Primary care physician: Ino Orlando MD Consults: 04/25/20 09:14 Consult to Infectious Diseases Routine Consulting Provider: Wendy Bunn Reason for consultation: covid 19 Consult to Pulmonology Routine Consulting Provider: Galo Dickerson Reason for consultation: covid 19 Has provider been notified: No 04/26/20 08:48 Consult to Cardiology Routine Consulting Provider: Nestor Sykes Reason for consultation: chest pressure Has provider been notified: Yes DS: Diagnosis Discharge Diagnosis (1) COVID-19: Status: Acute (2) HTN (hypertension): Status: Acute (3) HLD (hyperlipidemia): (4) Shortness of breath: Status: Resolved DS: Medications Discharge Medications Home Medications: Previous Rx's Medication Instructions Recorded amlodipine 5 mg tablet 5 mg PO DAILY #90 tab 03/22/20 metoprolol succinate 25 mg 25 mg PO DAILY #90 tab 03/22/20 tablet,extended release 24 hr rosuvastatin 5 mg tablet 5 mg PO DAILY #90 tab 03/22/20 cyclobenzaprine 10 mg tablet 10 mg PO BEDTIME PRN #30 tab 03/30/20 dexamethasone 6 mg PO DAILY #5 tab 04/29/20 doxycycline hyclate 100 mg PO Q12H #9 tab 04/29/20 DS: Summary Hospital Course Hospital Course: Chief Complaint: Covid with respiratory difficulty 49 year male with HTN, HLD who was treated with CAP at the begining of the moth and had full recovery and presented after tested positive for covid on 04/24/20. He developed cough the day prior, and has been experiencing heavy in the chest with breathing, cough is mostly non-productive, he has had fever of up to 101. He is admitted to the hospital in recent with pneumonia that may have compromise lungs and now with covid and some difficulty breathing despite oxygen saturation being ok for the time being. Hospital course:Patient was admitted to the hospital due to covid 19 associated with breathing dificulty and found to possible clinical inflamatory changes in the right lowe lung field in light of recent pneumonia this patient was at risk for respiratory compromised and therefore we deemed it necessary to treat with Remdesevir which he has completed five day course. He was also treated with Dexamethasone and will complete 10 days course. He was seen by Pulmonology and ID who oversaw the treatmentment. Pulmonology recommended treatment with Doxycycline for rales in right lower lung which was associated with pain in that area. Pain has since improved. Will treat with Doxycyline for 7 days total. Overall patient feels much better, brething is more comfortable and looks forward to going home. Time Spent with Patient Time attestation: Total time spent providing and/or coordinating discharge services: Physical Exam Vital Signs: Vital Signs: Last Vital Signs Temp 98.2 F 04/29/20 07:44 Pulse 71 04/29/20 07:59 Resp 18 04/29/20 07:44 BP 116/74 04/29/20 07:59 Pulse Ox 94 04/29/20 07:44 Body Mass Index 29.0 General: AO X 3, no acute distress Resp: CTA bilateral CVS: regular GI: +BS, NT, no distention Skin: No rash Neuro: motor grossly intact Psych: appropriate affect DS: Data Data Completed and Pending Labs on day of discharge: 04/25/20 CT angio chest PE protocol Urgent 04/25/20 09:10 Transfer Order Routine 04/25/20 09:14 Cont. Telemetry w/Vital Sign limit Q4HR IV insert/maintain Q4HR Intake and Output QSHIFTE Vital Signs Q4HR 04/25/20 09:15 dexAMETHasone Sod Phosphate/PF [Decadron] 6 mg IVPUSH DAILY 04/25/20 09:17 XR chest 1V Routine 04/25/20 09:48 Basic Metabolic Panel Routine C Reactive Protein Routine Complete Blood Count no Diff Routine D Dimer Routine Lactate Dehydrogenase Routine 04/25/20 Breakfast Regular Diet 04/25/20 10:10 ECG 12 lead EKG Routine 04/25/20 10:11 EKG Documentation DIRECTED 04/25/20 10:35 Liver Panel Stat 04/25/20 11:00 Nonf 200 mg IV DAILY 04/25/20 12:00 Remdesivir [Veklury] 200 mg 0.9 % Sodium Chloride [Ns] 210 ml IV ONCE 04/25/20 12:51 SARS COV2 IgG Urgent 04/25/20 Lunch Hold Tray Diet 04/25/20 17:43 iohexoL 350 MG/ML [Omnipaque 350 MG/ML] 100 ml IV ONCE ONE 04/26/20 09:31 Troponin-I High Sensitivity Stat 04/26/20 12:00 Remdesivir [Veklury] 100 mg 0.9 % Sodium Chloride [Ns] 230 ml IV Q24H 04/27/20 10:56 XR chest 1V Routine 04/27/20 12:09 Basic Metabolic Panel Routine Liver Panel Routine 04/29/20 07:58 Liver Panel Routine Laboratory Last Values WBC 5.9 X10*3/uL (4.8-10.8) 04/25/20 09:48 RBC 4.87 X10*6/uL (4.60-5.80) 04/25/20 09:48 Hgb 15.0 g/dl (14.0-18.0) 04/25/20 09:48 Hct 44.2 % (42-52) 04/25/20 09:48 MCV 90.8 fL (80-98) 04/25/20 09:48 MCH 30.8 pg (27.0-33.0) 04/25/20 09:48 MCHC 33.9 g/dl (31.0-36.0) 04/25/20 09:48 RDW 13.0 % (11.0-16.0) 04/25/20 09:48 Plt Count 256 X10*3/uL (160-400) 04/25/20 09:48 MPV 9.6 fL (9.4-12.4) 04/25/20 09:48 Absolute Nucleated RBC 0.000 X10*3/uL (0.0-0.012) 04/25/20 09:48 Nucleated RBC % (auto) 0.0 /100WBC (0.0-0.2) 04/25/20 09:48 D-Dimer < 200 NG/ML 04/25/20 09:48 Sodium 140 mmol/L (135-145) 04/27/20 12:09 Sodium Cancelled 04/27/20 12:09 Potassium 4.0 mmol/l (3.3-5.1) 04/27/20 12:09 Potassium Cancelled 04/27/20 12:09 Chloride 104 mmol/L (96-108) 04/27/20 12:09 Chloride Cancelled 04/27/20 12:09 Carbon Dioxide 27 mmol/L (22-29) 04/27/20 12:09 Carbon Dioxide Cancelled 04/27/20 12:09 Anion Gap 13 (12-20) 04/27/20 12:09 Anion Gap Cancelled 04/27/20 12:09 BUN 22 mg/dL (9-16) H D 04/27/20 12:09 BUN Cancelled 04/27/20 12:09 Creatinine 1.06 mg/dL (0.5-1.4) 04/27/20 12:09 Creatinine Cancelled 04/27/20 12:09 Estim Creat Clear Calc 83.6 04/27/20 12:09 Estim Creat Clear Calc Cancelled 04/27/20 12:09 Estimated GFR > 60 04/27/20 12:09 Estimated GFR Cancelled 04/27/20 12:09 Random Glucose 134 mg/dL (60-115) H 04/27/20 12:09 Random Glucose Cancelled 04/27/20 12:09 Calcium 8.2 mg/dL (8.4-10.2) L D 04/27/20 12:09 Calcium Cancelled 04/27/20 12:09 Total Bilirubin 0.3 mg/dL (0.0-1.0) 04/29/20 07:58 Direct Bilirubin 0.2 mg/dL (0.0-0.5) 04/29/20 07:58 AST 19 U/L (5-37) 04/29/20 07:58 ALT 35 U/L (0-40) 04/29/20 07:58 Alkaline Phosphatase 72 U/L (39-117) 04/29/20 07:58 Lactate Dehydrogenase 202 U/L (118-273) 04/25/20 09:48 Troponin I High Sens < 3.5 ng/L (<3.5-35.0) 04/26/20 09:31 C-Reactive Protein 0.78 mg/dL (< or = 0.50) H 04/25/20 09:48 Total Protein 6.3 g/dL (6.5-8.0) L 04/29/20 07:58 Albumin 3.9 g/dL (3.5-5.0) 04/29/20 07:58 SARS-CoV-2 IgG Ab Negative (Negative) 04/25/20 12:51 Discharge Plan Discharge Anticipated Discharge Date/Time: 04/29/20 07:31 Patient Disposition: Home, Self-Care Referrals: Johanny,Ino K, MD [Primary Care Provider] - Discharge Medications: New doxycycline hyclate 100 mg Tablet 100 mg PO Q12H Qty: 9 RF: 0 dexamethasone 6 mg tablet 6 mg PO DAILY Qty: 5 RF: 0 Continued rosuvastatin [Crestor] 5 mg tablet 5 mg PO DAILY Qty: 90 RF: 1 amlodipine 5 mg tablet 5 mg PO DAILY Qty: 90 RF: 1 metoprolol succinate [Toprol XL] 25 mg tablet extended release 24 hr 25 mg PO DAILY Qty: 90 RF: 1 cyclobenzaprine 10 mg tablet 10 mg PO BEDTIME PRN (Reason: muscle spasm) Qty: 30 RF: 0 No Action aspirin 81 mg tablet,delayed release (DR/EC) 81 mg PO DAILY RF: 0 Discharge Orders: Discharge Order (Routine); Ordered 04/29/20 Ordered By: Sher Parada Diet: advance to usual diet Activity on Discharge: As tolerated Visit Report Forms: Patient Portal Discharge page Care Plan Goals: Full recover from covid Health Concerns: covid-19 Plan of Treatment: CDC Guidelines for home isolation: - Stay away from others - Limit contact with pets and animals: If you must care for a pet, wash your hands before and after interacting with them - Wear a mask if you are sick - Cover your mouth and nose with a tissue when you cough or sneeze. Dispose of tissues in a lined trash can and wash your hands immediately with soap and water for at least 20 seconds. If soap and water are not available, clean hands with alcohol-based hand print color matcher that contains at least 60% alcohol. - Clean your hands often with soap and water for at least 20 seconds - Avoid touching your eyes, nose and mouth with unwashed hands - Do not share dishes, drinking glasses, cups, eating utensils, towels, or bedding with other people in your home. After using these items, wash them thoroughly with soap and water or put in the director supply. - Clean high-touch surfaces in your isolation area (?sick room? and bathroom) every day; let a caregiver clean and disinfect high-touch surfaces in other areas of the home. Clean the area or item with soap and water or another detergent if it is dirty. Then, use a household disinfectant. Seek medical attention, but call first: - Seek medical care right away if your illness is worsening (for example, if you have difficulty breathing). - Call your doctor before going in: Before going to the doctor?s office or emergency room, call ahead and tell them your symptoms. They will tell you what to do. - If possible, put on a facemask before you enter the building. If you can?t put on a facemask, try to keep a safe distance from other people (at least 6 feet away). This will help protect the people in the office or waiting room. - Follow care instructions from your healthcare provider and local health department: Your local health authorities will give instructions on checking your symptoms and reporting information. Emergency warning signs for COVID-19: - Difficulty breathing or shortness of breath - Persistent pain or pressure in the chest - New confusion or inability to arouse - Bluish lips or face Additional Instructions: - You can be around others after: 10 days since symptoms first appeared and 24 hours with no fever without the use of fever-reducing medications and Other symptoms of COVID-19 are improving* Discharge Date/Time: 04/29/20 11:20
== END 2020-04-29 11:20 | disposition home or self-care (01) | DRG 137 ==
LOC: HO.ISO 14:22 → HO.IMC 14:29
PROVIDERS: Hospitalist; Internal Medicine; Admitting Provider Internal Medicine; PCP Internal Medicine; Visit Provider Internal Medicine
DX: U07.1 COVID-19 (principal); I10 Essential (primary) hypertension; E78.5 Hyperlipidemia, unspecified; Z79.899 Other long term (current) drug therapy
CPT/HCPCS: 36415; 71045; 71275; 80048; 80076; 83615; 84484; 85027; 85379; 86140; 86769; 93005; J1100; J1650; J3490; Q9967

== ENCOUNTER → 2020-05-24 08:34 | Outpatient (BNVA) | payer OTHER, SELFPAY | PROVIDERS: PCP Internal Medicine; Visit Provider Internal Medicine Cardiovascular Disease | DX: R07.89 Other chest pain (principal); I10 Essential (primary) hypertension | CPT/HCPCS: 93005 ==

== ENCOUNTER 2020-07-11 07:13 | Outpatient (REF) | payer OTHER, SELFPAY ==
[2020-07-11 08:27] LABS: Anion Gap 14 (12-20); Blood Urea Nitrogen 18 mg/dL (9-16); Carbon Dioxide 24 mmol/L (22-29); Chloride 108 mmol/L (96-108); Estimated Glomerular Filt Rate > 60; Glucose Random 101 mg/dL (60-115); Potassium 4.5 mmol/L (3.3-5.1); Sodium 141 mmol/L (135-145)
[2020-07-12 14:12] LABS: CRP High Sensitivity 0.8 mg/L
== END 2020-07-11 07:14 | disposition home or self-care (01) ==
LOC: HO.LAB 07:13
PROVIDERS: Visit Provider Internal Medicine Cardiovascular Disease
DX: R07.89 Other chest pain (principal); E78.00 Pure hypercholesterolemia, unspecified; I10 Essential (primary) hypertension
CPT/HCPCS: 36415; 80048; 86141

== ENCOUNTER 2021-01-30 13:40 | Outpatient (REF) | payer OTHER, SELFPAY ==
--- NOTE | ~2021-01-30 | XR_ITS ---
EXAMINATION: XR CHEST CLINICAL INFORMATION: Chest pain. COMPARISON: None TECHNIQUE: 2 views of the chest were obtained. FINDINGS: No significant abnormality is noted involving the heart, lungs, mediastinum, bony thorax or soft tissues. XR/XR chest 2V IMPRESSION: Unremarkable chest exam.
== END 2021-01-30 13:41 | disposition home or self-care (01) ==
LOC: HO.HMGCX 13:40
PROVIDERS: PCP Internal Medicine; Visit Provider Internal Medicine
DX: R07.89 Other chest pain (principal)
CPT/HCPCS: 71046

== ENCOUNTER → 2021-02-01 11:54 | Outpatient (BNVA) | payer OTHER, SELFPAY | PROVIDERS: PCP Internal Medicine; Visit Provider Internal Medicine Pulmonary Disease ==

== ENCOUNTER 2021-02-01 12:37 | Outpatient (REF) | payer OTHER, SELFPAY ==
[2021-02-01 12:52] LABS: MANUAL DIFF FLAG NO
[2021-02-01 13:03] LABS: Basophils Percent Auto 0.4 % (0-2); Eosinophils Percent Auto 0.6 % (0-4); Hematocrit 43.5 % (42-52); Imm Gran Abs Auto 0.01 X10*3/uL (0.00-0.03); Imm Gran Pct Auto 0.1 % (0.0-0.4); Lymphocytes Percent Auto 13.6 % (20-40); Mean Corpuscular HGB Conc 34.5 g/dl (31.0-36.0); Mean Corpuscular Hemoglobin 30.8 pg (27.0-33.0); Mean Corpuscular Volume 89.3 fL (80-98); Mean Platelet Volume 9.6 fL (9.4-12.4); Monocytes Absolute Auto 0.7 X10*3/uL (0.1-1.2); Monocytes Percent Auto 10.5 % (2-11); Neutrophils Absolute Auto 5.2 X10*3/uL (2.0-8.3); Neutrophils Percent Auto 74.8 % (45-73); Platelet Count 189 X10*3/uL (160-400); Red Blood Count 4.87 X10*6/uL (4.60-5.80); Red Cell Distribution Width 12.8 % (11.0-16.0)
[2021-02-01 13:26] LABS: Alanine Aminotransferase 108 U/L (0-40); Albumin Level 4.2 g/dL (3.5-5.0); Alkaline Phosphatase 88 U/L (39-117); Anion Gap 12 (12-20); Aspartate Amino Transferase 105 U/L (5-37); Bilirubin Total 0.6 mg/dL (0.0-1.0); Blood Urea Nitrogen 13 mg/dL (9-16); C Reactive Protein 8.49 mg/dL (< or = 0.50); Carbon Dioxide 27 mmol/L (22-29); Chloride 104 mmol/L (96-108); Estimated Glomerular Filt Rate > 60; Glucose Random 118 mg/dL (60-115); Potassium 4.2 mmol/L (3.3-5.1); Sodium 139 mmol/L (135-145); Total Protein 7.1 g/dL (6.5-8.0)
[2021-02-01 13:36] LABS: Rheumatoid Factor < 15.0 IU/mL (<15.0)
[2021-02-03 13:41] LABS: Anti Nuclear Antibody Screen NEGATIVE (NEGATIVE)
[2021-02-05 14:07] LABS: Cyclic Citrullinated Peptide <16 UNITS
[2021-02-05 21:41] LABS: IgA 187 mg/dL (47-310); IgG 1230 mg/dL (600-1640); IgM 39 mg/dL (50-300)
[2021-02-06 07:17] LABS: Immunoglobulin E 69 kU/L (<OR=114)
== END 2021-02-01 12:38 | disposition home or self-care (01) ==
LOC: HO.LAB 12:37
PROVIDERS: Visit Provider Internal Medicine Pulmonary Disease
DX: J41.1 Mucopurulent chronic bronchitis (principal)
CPT/HCPCS: 36415; 80053; 82784; 82785; 85025; 86038; 86039; 86140; 86200; 86431

== ENCOUNTER 2021-02-02 09:50 | Outpatient (REF) | payer OTHER, SELFPAY ==
--- NOTE | ~2021-02-02 | CT_ITS ---
EXAMINATION: CT CHEST WITHOUT CONTRAST CLINICAL INFORMATION: Mucopurulent chronic bronchitis. COMPARISON: Chest x-ray 01/30/2021 TECHNIQUE: Multidetector volumetric CT imaging of the chest was done. Axial MIP volume rendering provided. Sagittal and coronal reformatted images were obtained. This CT examination was performed using dose optimization techniques as appropriate, variously including the following: *Automated exposure control *Adjustment of mA and/or kV according to patient size (this includes techniques or standardized protocols for targeted exams where dose is matched to indication/reason for exam; i.e. extremities or head) *Use of iterative reconstruction technique DLP: 170 mGy-cm FINDINGS: BUTTER PRINTER: Unremarkable LUNGS: The lungs are clear with no acute pneumonic process seen. There are no pulmonary nodules, mass or consolidation. No groundglass density or atelectatic changes. MEDIASTINUM: The thyroid lobes are symmetrical and normal. The central trachea and the bronchi are widely patent. Heart size and the great vessels are normal caliber. There are coronary artery calcifications present. There is no pericardial effusion. No abnormal size mediastinal or hilar lymph nodes seen. PLEURA: There is no pleural effusion. No pleural mass or thickening. AXILLA: No lymphadenopathy. UPPER ABDOMEN: Visualized liver, spleen, pancreas and bilateral adrenal glands are unremarkable. There are no radiopaque gallstones or wall thickening. OSSEOUS STRUCTURES: There is mild ventral spondylosis lower dorsal spine. CT/CT chest wo con IMPRESSION: Unremarkable CT chest. No consolidation, and/or KV cases or pleural effusion. No abnormal lymphadenopathy.
== END 2021-02-02 09:51 | disposition home or self-care (01) ==
LOC: HO.CT 09:50
PROVIDERS: PCP Internal Medicine; Visit Provider Internal Medicine Pulmonary Disease
DX: J41.1 Mucopurulent chronic bronchitis (principal)
CPT/HCPCS: 71250

== ENCOUNTER 2021-02-15 07:19 | Outpatient (REF) | payer OTHER, SELFPAY ==
[2021-02-19 19:31] LABS: Immunoglobulin G Subclass 1 712 mg/dL (382-929); Immunoglobulin G Subclass 2 134 mg/dL (241-700); Immunoglobulin G Subclass 3 10 mg/dL (22-178); Immunoglobulin G Total 1109 mg/dL (600-1640)
== END 2021-02-15 07:20 | disposition home or self-care (01) ==
LOC: HO.LAB 07:19
PROVIDERS: PCP Internal Medicine; Visit Provider Internal Medicine Pulmonary Disease
DX: J41.1 Mucopurulent chronic bronchitis (principal)
CPT/HCPCS: 36415; 82784; 82785; 86003

== ENCOUNTER 2022-01-17 07:15 | Day surgery (SDC) | payer OTHER, SELFPAY ==
[2022-01-14 12:28] VITALS: BMI 28.4
--- NOTE | 2022-01-17 06:43 | MHC.SHP ---
Pre-Procedural Eval Section A Date of Service: 01/17/22 Section B Chief Complaint: screening Relevant Family History (Specify if Yes): No Relevant Social History: None Present Medications: see Short Stay Collaborative assessment Medical History: Significant History (HTn, HLP, ) History of Previous Operations: No relevant previous surgery Allergies: Allergies Allergy/AdvReac Type Severity Reaction Status Date / Time fish derived [fish] Allergy Unknown Hives Verified 10/04/21 15:22 Sulfa (Sulfonamide Allergy Unknown unknown Verified 10/04/21 15:22 Antibiotics) Review of Systems Sugical H&P ROS: Negative: Constitution, Cardiovascular, Respiratory, Neurological, Psychiatric, Hem-Onc, Allergic/Immunologic, Gastrointestinal, Genitourinary, Musculoskeletal, Integumentary, Endocrine and Eyes/Ears/Nose/Throat Exam Surgical H&P Exam: Normal: HEENT, Normal: Heart, Normal: Lungs, Normal: Extremities, Normal: Abdomen, Normal: Skin and Normal: Neurological Plan Diagnosis/Plan: Unchanged I have reviewed the history and physical and performed a pertinent physical examination on my patient. No changes have occurred unless specified.
[2022-01-17 07:23] VITALS: BP 136/92; PULSE 96; RESP 16; TEMP 36.1; O2SAT 99
[2022-01-17] MEDS: Lactated Ringers 1,000 ML 50 ML IVCONT (07:36)
--- NOTE | 2022-01-17 08:14 | P.OP_ITS ---
Operative Note Operative Note Date of Service: 01/17/22 Narrative: Operative Information Procedure Description: Colonoscopy Indication: screening Anesthesia: MAC COLONOSCOPY Instrument: Olympus variable stiffness pediatric scope 190L Colonoscopy Monitoring: Vital signs and clinical assessment, continuous EKG monitoring, Pulse oximetry, Carbon Dioxide monitoring and blood pressure monitoring were done throughout the procedure. Colon withdrawal time was 10 minutes. Procedure: The patient was placed in the left lateral decubitis position and pre-procedure medications were administered. After a digital rectal examination of the ano-rectum, the video colonoscope was inserted into the rectum and advanced through the colon to the cecum/TI. The colonoscope was slowly withdrawn in a retrograde panoramic fashion and the colon mucosa was carefully examined including a retroflexed view of the rectum. Findings and interventions are described below. Procedure Difficulty: easy Findings: Terminal Ileum-normal Right sided retroflexion: normal Cecum:normal Ascending Colon: normal Transverse Colon -normal Descending Colon:normal Sigmoid Colon: normal Rectum: Retroflexion with moderate sized internal hemorrhoids, grade I Anorectum - normal Colon preparation: Beverly Bowel Preparation Scale Right colon; 3 Transverse colon: 3 Left colon; 3 (0 = Unprepared colon segment with mucosa not seen due to solid stool that cannot be cleared. 1 = Portion of mucosa of the colon segment seen, but other areas of the colon segment not well seen due to staining, residual stool and/or opaque liquid. 2 = Minor amount of residual staining, small fragments of stool and/or opaque liquid, but mucosa of colon segment seen well. 3 = Entire mucosa of colon segment seen well with no residual staining, small fragments of stool or opaque liquid) Impression and Post Procedure Diagnosis: internal hemorrhoids Plan: High fiber diet leaflet Avoid straining at stool, epsom salts and sitz bath, anusol supps or cream Repeat Colonoscopy in 10 years or earlier if clinically indicated Above findings were reviewed with the patient and relevant handouts were provided if indicated.
--- NOTE | 2022-01-17 08:37 | P.CONAN_ITS ---
HPI - Anesthesia Eval Consult details Narrative: screening colonoscopy [facility] Active Problems Active Problems: All Active Problems (Updated 01/14/22 @ 12:17 by Radha Ernst RN) COVID-19 (Acute) Atypical chest pain (Acute) Bronchitis, mucopurulent recurrent (Acute) Hypercholesteremia (Acute) HTN (hypertension) (Acute) Past Medical History Medical History COVID-19 HLD (hyperlipidemia) HTN (hypertension) Hypercholesteremia Family History Family History Mother Stroke Other Coronary artery disease (CAD) excluded HLD (hyperlipidemia) HTN (hypertension) Family history of problems with anesthesia: No Surgical History Surgical History No pertinent past surgical history History of Problems with Anesthesia: No Social History Social History Household Members: Spouse and Children Housing: House Do you presently have visiting nurse or other home services: No Alcohol intake: current Alcohol intake frequency: holidays/special occasions only Patient Tobacco Use Status: Never used Tobacco e-Cigarette/Vaping Use: Never Used Second Hand Smoke Exposure: No Advance Directives: No Advance Directives Information Provided: Yes service: No Current occupational status: employed Cognitive needs: No Hearing needs: No Vision needs: Yes (contacts) Meds Allergies Allergy/AdvReac Type Severity Reaction Status Date / Time fish derived [fish] Allergy Unknown Hives Verified 10/04/21 15:22 Sulfa (Sulfonamide Allergy Unknown unknown Verified 10/04/21 15:22 Antibiotics) Active Medications: Current Medications Lactated Ringer's (Lr) 1,000 mls @ 50 mls/hr IVCONT .Q20H LETICIA Last Admin: 01/17/22 07:36 Dose: 50 mls/hr Home Medications Medication Instructions Recorded Confirmed Last Taken Type aspirin 81 mg tablet,delayed 81 mg PO DAILY 05/24/20 01/14/22 01/16/22 History release Exam Exam Date and Time: January 17, 2022 0837 Height,Weight and Vital Signs: Height 5 ft 6 in Weight 79.889 kg Last Vital Signs Temp 97.0 F 01/17/22 07:23 Pulse 96 01/17/22 07:23 Resp 16 01/17/22 07:23 BP 136/92 H 01/17/22 07:23 Pulse Ox 99 01/17/22 07:23 O2 Del Method 01/17/22 07:23 Airway Mallampati Class: II TM Dist: >3cm Neck ROM: Full Loose/Missing/Broken Teeth: No Heart: rrr+[id number] Lungs: cta b/l Assessment and Plan Assessment Anesthesia Assessment: Anesthesia Plan Discussed and Chart Reviewed Final Anesthetic Review Family History of Problems with Anesthesia: No History of Problems with Anesthesia: No NPO: Yes ASA Class: II Final Preanesthetic Review: No Changes in Pt Med Stat, Meds/Allgs Chart Reviewed, Consent Obtained/Reviewed and Anes Risks/Benef Reviewed Patient Risk: Low Procedure Risk: Low Assessment/Block/Sedation in SS: Assess/Block/Sedation-SS Anesthetic Plan Anesthetic Plan: MAC: and Agree w/ Assess. and Plan Disposition: Standard PACU
[2022-01-17 08:48] VITALS: BP 100/49; PULSE 82; RESP 16; TEMP 36.2; O2SAT 96
[2022-01-17 09:03] VITALS: BP 93/55; PULSE 71; RESP 16; O2SAT 97
[2022-01-17 09:18] VITALS: BP 100/51; PULSE 71; RESP 16; O2SAT 97
[2022-01-17 09:33] VITALS: BP 127/78; PULSE 70; RESP 16; TEMP 36.2; O2SAT 99
== END 2022-01-17 10:41 | disposition home or self-care (01) ==
PROVIDERS: PCP Internal Medicine; Visit Provider Internal Medicine Gastroenterology
PROC: 0DJD8ZZ Inspection of Lower Intestinal Tract, Via Natural or Artificial Opening Endoscopic (ICD-10-PCS; CPT 45378; principal; 2022-01-17 08:20)
DX: Z12.11 Encounter for screening for malignant neoplasm of colon (principal); K64.0 First degree hemorrhoids; I10 Essential (primary) hypertension; E78.5 Hyperlipidemia, unspecified; E78.00 Pure hypercholesterolemia, unspecified; Z79.82 Long term (current) use of aspirin; Z79.899 Other long term (current) drug therapy; Z88.2 Allergy status to sulfonamides; Z86.16 Personal history of COVID-19
CPT/HCPCS: 45378; J2250

== ENCOUNTER 2022-04-17 07:00 | Outpatient (RCR) | payer OTHER, SELFPAY ==
[2022-03-15 07:04] VITALS: BP 146/90; PULSE 80; O2SAT 96
--- NOTE | 2022-03-15 14:41 | MHC.PT.EP ---
[facility] [place] Office [place] Office [place] Office [address] Miriam Calzada [address] [phone] F: [phone] F: [phone] F: [phone] F: [phone] Physical Therapy Plan of Care Date of Evaluation: Date of Surgery: Diagnosis: PAIN IN THORACIC SPINE Assessment: 51 YO MALE REF TO PT WITH Rt THORACOLS PAIN x APPROX 1 MONTH. OBJECTIVE FINDINGS: DECR AROM IN TRUNK AND HIPS, TIGHT HIP ROTATORS AND Rt ILIOPSOAS MM, DECR POSTURAL AWARENESS, (+) SOFT TISSUE IRRIT IN POSTERIOR CHAIN / THORACOLUMB PS/ Rt ILIOPSOAS/ QL; AND FLUCTUATING PAIN Rt LUMBO/HIP REGION. FUNCTIONALLY, Pt HAS DECR ROXANE TO FITNESS WALKING, HEAVY LIFTING, TRANSITIONAL MVMTS, DONNING SOCKS, DRIVING, AND PROLONGED SITTING. Pt IS MOTIVATED FOR PT AND HE WOULD BENEFIT FROM PT TO ADDRESS THE ABOVE FINDINGS, REDUCE SOFT TISSUE IRRIT/ TENSION, DEV A PROGR HEP AND SELF-SX MGMT TECHN. Frequency and Duration: The patient will be seen 2 x WK x 5 WKS Short Term Goals: *IMPROVE HIP/ HS/ PSOAS FLEXIB *Pt'S Rt LS PAIN DECR TO 2-3/10 W REG ADLS *Pt DEMON INDEP SELF-CORRECT POSTURE *Pt DEMON IMPROVED TRUNK AROM [employer] Editor Goals: *Pt INDEP W PROGRESSIVE HEP AND SELF-SX MGMT TECHN *Pt RESUME REG ADLs (LIFTING, TRANSFERS) / FITNESS EVIDENT W IMPROVED OSWESTRY SCORE (AT EVAL 13/50) *Pt DEMON EFFICIENT GAIT MECH ON LEVEL AND STAIRS W/O Rt ILIOPSOAS SXS Treatment Plan: Modalities to reduce pain, spasms and effusion. Manual therapy to restore motion and function. Therapeutic exercise to improve strength and flexibility. Neuromuscular re-education for posture and balance. Therapeutic activities to return to functional activities of daily living. Electronically signed by: IKE RAHMAN,PT Please sign and return to therapist. Thank you for your referral.
--- NOTE | 2022-06-07 15:16 | MHC.PT.DC ---
[facility] [place] Office [place] [facility] [place] [facility] [address] Miriam Calzada [address] [phone] F: [phone] F: [phone] F: [phone] F: [phone] Physical Therapy Discharge Report Diagnosis: PAIN IN THORACIC SPINE Date of Surgery: Date of Evaluation: 03/15/22 Date of Discharge: 06/07/22 Treatments to Date: 9 Cancellations to Date: 4 No Shows to Date: Discharge Status: Improved Function Independent with HEP Patient Elected to Stop Discharge Summary: Pt PROGRESSED VERY WELL IN PT- MAJORITY OF HIS SXS HAD DIMINISHED OF LAST ATTENDED PT APPT, HE HAD RESIDUAL LEFT POSTERIOR TROCHANTERIC SORENESS, UNABLE TO TRIAL IONTO DUE TO ALLERGIES, DISCUSSED ICE APPLIC,TOPICALS,ETC; HE BENEFITTED FROM HIP STRETCHES AND FOAM ROLL TRIAL TO EASE TISSUE TENSION IN [place] [facility]- DEMON MORE EFFICIENT MOBILITY AND LUMBOPELVIC STAB- A FORMAL RE-ASSESSMENT WAS NOT PERF DUE TO CX LAST FEW APPTS. Electronically signed by: IKE RAHMAN,PT Please sign and return to therapist. Thank you for your referral.
== END 2022-06-07 15:15 | disposition home or self-care (01) ==
LOC: HO.PT 07:00
PROVIDERS: PCP Internal Medicine; Visit Provider Internal Medicine
DX: M54.6 Pain in thoracic spine (principal)
CPT/HCPCS: 97110; 97112; 97140; 97162

== ENCOUNTER 2022-07-22 07:25 | Outpatient (REF) | payer OTHER, SELFPAY ==
[2022-07-23 11:54] LABS: Rubeola IgG (Measles) >300.00 AU/mL
[2022-07-23 12:59] LABS: Immunoglobulin G Subclass 1 805 mg/dL (382-929); Immunoglobulin G Subclass 2 157 mg/dL (241-700); Immunoglobulin G Subclass 3 9 mg/dL (22-178); Immunoglobulin G Subclass 4 28.4 mg/dL (4-86); Immunoglobulin G Total 1198 mg/dL (600-1640)
[2022-07-23 16:04] LABS: IgA 139 mg/dL (47-310); IgG 1295 mg/dL (600-1640); IgM 35 mg/dL (50-300)
[2022-07-25 14:24] LABS: Tetanus Antitoxiod Antibody 0.14 IU/mL
== END 2022-07-22 07:26 | disposition home or self-care (01) ==
LOC: HO.HMGCLDS 07:25
PROVIDERS: PCP Internal Medicine; Visit Provider Internal Medicine Pulmonary Disease
DX: J41.1 Mucopurulent chronic bronchitis (principal)
CPT/HCPCS: 36415; 82784; 86648; 86735; 86765; 86774; 86787

== ENCOUNTER 2023-01-31 07:07 | Outpatient (REF) | payer OTHER, SELFPAY | END 2023-01-31 07:08 | disposition home or self-care (01) | LOC: HO.HMGCLDS 07:07 | PROVIDERS: PCP Internal Medicine; Visit Provider Internal Medicine | DX: I10 Essential (primary) hypertension (principal); E78.00 Pure hypercholesterolemia, unspecified | CPT/HCPCS: 36415; 80048; 80061; 80076; 81001; 84443; 85027; 85652 ==

== ENCOUNTER 2023-02-05 09:51 | Outpatient (AMB) | payer OTHER, SELFPAY ==
--- NOTE | 2023-02-05 09:52 | MHC.PC.OV ---
Vital Signs 02/05/23 09:54 Height 5 ft 6 in Weight 178 lb 8 oz BMI 28.8 BP 130/90 H Blood Pressure Location Lt brachial Position Sitting Pulse 76 Pulse Source Pulse Oximeter Pulse Oximetry (%) 95 Oxygen Delivery Method Room Air Intake Visit Reasons: PE Intake Note: Patient is here today for a physical. Service Line Coordinator Required: No Stabilizing Machine Operator: Not Required per policy Accompanied by: Self / Same As Patient Allergies fish derived [fish] Allergy (Unknown, Verified 02/05/23 10:19) Hives Sulfa (Sulfonamide Antibiotics) Allergy (Unknown, Verified 02/05/23 10:19) unknown Tobacco use date assessed: 02/05/23 Dental Screening Dental Screen Date: 02/05/23 Did you have a dental visit in the last 12 months?: Yes Did you have a dental problem in the last 6 months where you did not have access to dental care?: No Was dental information given to patient?: Patient has dentist HPI PE HPI Details 52-year-old male presents to the office to discuss his chronic medical conditions. Patient has been doing very well with no specific complaints. Since the last office visit he has lost 10 lb with active exercise and proper diet. He plans to lose another 5 lb. Compliant with all his medications and reporting no side effects. Able to function and do all activities of daily living. [facility] Medical History COVID-19 HLD (hyperlipidemia) HTN (hypertension) Hypercholesteremia Surgical History No pertinent past surgical history Family History Mother Stroke Other Coronary artery disease (CAD) excluded HLD (hyperlipidemia) HTN (hypertension) Social History Household Members: Spouse and Children Housing: House Do you presently have visiting nurse or other home services: No Alcohol intake: current Alcohol intake frequency: holidays/special occasions only Patient Tobacco Use Status: Never used Tobacco e-Cigarette/Vaping Use: Never Used Second Hand Smoke Exposure: No service: No Current occupational status: employed Cognitive needs: No Hearing needs: No Vision needs: Yes (contacts) Questionnaire PHQ-9 Over the last 2 weeks, how often have you been bothered by any of the following problems? 1. Little interest or pleasure in doing things: not at all 2. Feeling down, depressed, or hopeless: not at all 3. Trouble falling or staying asleep, or sleeping too much: not at all 4. Feeling tired or having little energy: not at all 5. Poor appetite or overeating: not at all 6. Feeling bad about yourself - or that you are a failure or have let yourself or your family down: not at all 7. Trouble concentrating on things, such as reading the newspaper or watching television: not at all 8. Moving or speaking so slowly that other people could have noticed. Or the opposite - being so fidgety or restless that you have been moving around a lot more than usual: not at all 9. Thoughts that you would be better off or of hurting yourself in some way: not at all Total score: 0 Depression Screening Interpretation: Negative Depression Screening Done: Yes Source: Developed by Drs. Carl Rodriguez, Alba Waterman, Greg Johnson and colleagues, with an educational jann from [email or web address]. Thrive Questionnaire Date Thrive assessed: 02/05/23 I am a: Patient What is your living situation today?: I have a steady place to live Within the past 12 months, did the food you bought not last and you didn't have the money to get more?: Never true Within the past 12 months, did you worry whether your food would run out before you got money to buy more?: Never true Do you have trouble paying for medicines?: No Do you have trouble getting transportation to medical appointments?: No Do you have trouble paying your heating and electricity bill?: No Do you have trouble taking care of your child, family member or friend?: No Do you have trouble with day-to-day activities such as bathing, preparing meals, shopping, managing finances, etc.?: No Are you currently unemployed and looking for a job?: No Are you interested in more education?: No Currently or been in a relationship where the following occur: no concerns reported AUDIT C Alcohol Use Questionnaire (AUDIT-C) 1. How often do you have a drink containing alcohol?: Monthly or less Total Score: 1 AARTI-7 AMB Questionnaire AARTI-7 Date AARTI - 7 assessed: 02/05/23 Feeling nervous, anxious, or on edge: 0 = Not at all Not being able to stop or control worryin = Not at all Worrying too much about different things: 0 = Not at all Trouble relaxin = Not at all Being so restless that it is hard to sit still: 0 = Not at all Becoming easily annoyed or irritable: 0 = Not at all Feeling afraid as if something awful might happen: 0 = Not at all Total AARTI-7 score (0-4 normal; 5-9 mild; 10-14 moderate; 15-21 severe): 0 Source: Developed by Drs. Carl Rodirguez, Alba Waterman, Greg Johnson and colleagues, with an educational jann from [email or web address]. Physical exam (Primary Care) Tobacco/Smoking Status: Tobacco use Status Tobacco use date assessed 10/04/21 10/04/21 15:27 Patient Tobacco Use Status Never used Tobacco 01/17/22 08:44 e-Cigarette/Vaping Use Never Used 10/04/21 15:27 Depression Screening Interpretation: Negative Thrive Assessment: Date of Thrive Assessment Date Thrive assessed 10/04/21 10/04/21 15:27 Currently or been in a relationship where the following occur: no concerns reported Const General: cooperative and healthy appearing Nutritional Appearance: well nourished Orientation/consciousness: patient oriented x3 Limitations: no limitations HENMT Head: Yes normal to inspection Eyes General: appearance normal, both eyes and all related structures Neck Neck: Yes normal visual inspection Chest Chest palpation & inspection: normal palpation of entire chest wall Resp Effort & Inspection: normal respiratory effort Neuro General: patient oriented x3 Assessment and Plan Assessment & Plan (1) Hypercholesteremia: Code(s): E78.00 - Pure hypercholesterolemia, unspecified Plan: Blood work results reviewed with patient. His LDL cholesterol is in range. Continue rosuvastatin at the same dosage. (2) HTN (hypertension): Code(s): I10 - Essential (primary) hypertension Plan: Blood pressure shows slightly elevated diastolic blood pressure. I recommended he check his blood pressures at home. Continue blood pressure medications at the same dosage. Coding Level of Care Code Est Pt Level 4 (12735) Diagnoses Hypercholesteremia E78.00 HTN (hypertension) I10
[2023-02-05 09:54] VITALS: BP 130/90; PULSE 76; O2SAT 95; BMI 28.8
== END 2023-02-05 11:02 | disposition home or self-care (01) ==
PROVIDERS: PCP Internal Medicine; Visit Provider Internal Medicine
DX: E78.00 Pure hypercholesterolemia, unspecified (principal); I10 Essential (primary) hypertension
CPT/HCPCS: 99214

== ENCOUNTER 2024-09-03 10:46 | Outpatient (REF) | payer OTHER, SELFPAY ==
--- NOTE | 2024-09-03 10:52 | ECG_ITS ---
Test Reason : HYPERCHOL Blood Pressure : */* mmHG Vent. Rate : 67 BPM Atrial Rate : 67 BPM P-R Int : 172 ms QRS Dur : 100 ms QT Int : 388 ms P-R-T Axes : 40 4 -7 degrees QTcB Int : 409 ms Normal sinus rhythm Possible Inferior infarct (cited on or before 29-Mar-2020) Abnormal ECG When compared with ECG of 25-Apr-2020 12:45, No significant change was found Referred By: Jen Escalona Electronically Signed By: GINNY CORCORAN
[2024-09-03 11:00] LABS: MANUAL DIFF FLAG NO
[2024-09-03 11:04] LABS: Basophils Percent Auto 0.5 % (0-2); Eosinophils Absolute Auto 0.1 X10*3/uL (0.0-0.4); Eosinophils Percent Auto 0.9 % (0-4); Hematocrit 40.7 % (42.0-52.0); Hemoglobin 14.5 g/dl (14.0-18.0); Imm Gran Abs Auto 0.01 X10*3/uL (0.00-0.03); Imm Gran Pct Auto 0.2 % (0.0-0.4); Lymphocytes Absolute Auto 1.5 X10*3/uL (1.2-4.9); Lymphocytes Percent Auto 23.3 % (20-40); Mean Corpuscular HGB Conc 35.6 g/dl (31.0-36.0); Mean Corpuscular Hemoglobin 32.1 pg (27.0-33.0); Mean Platelet Volume 9.3 fL (9.4-12.4); Monocytes Absolute Auto 0.5 X10*3/uL (0.1-1.2); Monocytes Percent Auto 8.5 % (2-11); Neutrophils Absolute Auto 4.2 x10*3/uL (2.0-8.3); Neutrophils Percent Auto 66.6 % (45-73); Platelet Count 275 X10*3/uL (160-400); Red Blood Count 4.52 X10*6/uL (4.60-5.80); Red Cell Distribution Width 12.5 % (11.0-16.0); White Blood Count 6.4 X10*3/uL (4.8-10.8)
[2024-09-03 11:18] LABS: Alanine Aminotransferase 48 U/L (0-40); Albumin Level 4.4 g/dL (3.5-5.0); Alkaline Phosphatase 89 U/L (39-117); Anion Gap 8 (12-20); Aspartate Amino Transferase 40 U/L (5-37); Bilirubin Total 0.3 mg/dL (0.0-1.0); Blood Urea Nitrogen 17 mg/dL (9-16); Calcium 9.2 mg/dL (8.4-10.2); Carbon Dioxide 28 mmol/L (22-29); Chloride 105 mmol/L (96-108); Estimated Glomerular Filt Rate > 60; Glucose Random 134 mg/dL (60-115); Sodium 137 mmol/L (135-145); Total Protein 7.3 g/dL (6.5-8.0)
[2024-09-03 11:27] LABS: Troponin-I High Sensitivity < 2.7 ng/L (<3.5-35.0)
== END 2024-09-03 10:47 | disposition home or self-care (01) ==
LOC: HO.LAB 10:46
PROVIDERS: Physician Assistant Medical; PCP Internal Medicine; Visit Provider Internal Medicine
DX: Z00.00 Encounter for general adult medical examination without abnormal findings (principal); R07.89 Other chest pain; I10 Essential (primary) hypertension; E78.00 Pure hypercholesterolemia, unspecified
CPT/HCPCS: 36415; 80053; 82550; 84484; 85025; 93005

== ENCOUNTER → 2024-09-03 10:52 | Outpatient (BNV) | payer OTHER, SELFPAY | PROVIDERS: PCP Internal Medicine; Visit Provider Internal Medicine | DX: R94.31 Abnormal electrocardiogram [ECG] [EKG] (principal); E78.00 Pure hypercholesterolemia, unspecified | CPT/HCPCS: 93010 ==

== ENCOUNTER 2025-04-08 07:19 | Outpatient (REF) | payer OTHER, SELFPAY ==
[2025-04-08 07:48] LABS: Hematocrit 42.7 % (42.0-52.0); Hemoglobin 14.8 g/dl (14.0-18.0); Mean Corpuscular HGB Conc 34.7 g/dl (31.0-36.0); Mean Corpuscular Hemoglobin 31.2 pg (27.0-33.0); Mean Corpuscular Volume 90.1 fL (80.0-98.0); NRBC Abs Auto 0.000 X10*3/uL (0.0-0.012); NRBC Pct Auto 0.0 /100WBC (0.0-0.2); Platelet Count 259 X10*3/uL (160-400); Red Blood Count 4.74 X10*6/uL (4.60-5.80); White Blood Count 6.2 X10*3/uL (4.8-10.8)
[2025-04-08 08:16] LABS: Alanine Aminotransferase 39 U/L (0-40); Albumin Level 4.6 g/dL (3.5-5.0); Alkaline Phosphatase 85 U/L (39-117); Anion Gap 11 (12-20); Aspartate Amino Transferase 32 U/L (5-37); Blood Urea Nitrogen 23 mg/dL (9-16); Calcium 9.3 mg/dL (8.4-10.2); Carbon Dioxide 26 mmol/L (22-29); Chloride 108 mmol/L (96-108); Cholesterol 113 mg/dL (<200); Estimated Glomerular Filt Rate > 60; HDL Cholesterol 46 mg/dL (>40); Potassium 4.4 mmol/L (3.3-5.1); Sodium 141 mmol/L (135-145); Total Protein 7.3 g/dL (6.5-8.0); Triglycerides 61 mg/dL (<150)
[2025-04-08 08:24] LABS: Appearance Urine Clear; Glucose Urine UA Negative (Negative); PH 5.5 (5.0-9.0); Specific Gravity - Urine 1.025 (1.005-1.025); UMIC TRIGGER UA YES
[2025-04-08 08:26] LABS: Thyroid Stimulating Hormone 0.98 uIU/mL (0.32-4.0)
== END 2025-04-08 07:20 | disposition home or self-care (01) ==
LOC: HO.LAB 07:19
PROVIDERS: PCP Internal Medicine; Visit Provider Internal Medicine
DX: I10 Essential (primary) hypertension (principal); E78.00 Pure hypercholesterolemia, unspecified; Z12.5 Encounter for screening for malignant neoplasm of prostate
CPT/HCPCS: 36415; 80048; 80061; 80076; 81001; 81003; 84153; 84443; 85027; 86140